=== PATIENT | male | born 1990 | race Caucasian/White ===

== ENCOUNTER 2019-02-20 12:50 | Emergency (ER) | payer SELFPAY ==
[2019-02-20] MEDS ORDERED: Benzocaine 20% Topical Spray UD MUCMEM ONE (13:07)
[2019-02-20] MEDS ORDERED: Lidocaine 2% Viscous Solution 15 ML Cup PO ONE (13:07)
--- NOTE | 2019-02-20 13:09 | EDM.PDOC ---
ED HPI GENERAL MEDICAL PROBLEM - General Chief Complaint: ENT Problem Stated Complaint: TOOTH PAIN Time Seen by Provider: 02/20/19 13:00 Source of Information: Reports: [facility] Records History Limitations: Reports: No Limitations - History of Present Illness INITIAL COMMENTS - FREE TEXT/NARRATIVE: HISTORY AND PHYSICAL: History of present illness: Patient is a 28-year-old male who presents to the ED today with concern of dental pain 2 days. Patient states he has multiple broken teeth and does not see a dentist and has not seen one for over 5-10 years. Patient states he's had tooth abscesses in the past but has never had them properly treated. Patient states he can't afford a dentist so he came to the ED today. Patient denies fever, chills, chest pain, shortness of breath, or cough. Denies headache, neck stiff ness, change in vision, syncope, or near syncope. Denies nausea, vomiting, abdominal pain, diarrhea, constipation, or dysuria. Has not noted any blood in urine or stool. Patient has been eating and drinking appropriately. Review of systems: As per history of present illness and below otherwise all systems reviewed and negative. Past medical history: As per history of present illness and as reviewed below otherwise noncontributory. Surgical history: As per history of present illness and as reviewed below otherwise noncontributory. Social history: See social history for further information Family history: As per history of present illness and as reviewed below otherwise noncontributory. Physical exam: General: Patient is alert, oriented, and in no acute distress. Patient sitting comfortably on exam table. HEENT: Atraumatic, normocephalic, pupils equal and reactive bilaterally, negative for conjunctival pallor or scleral icterus, mucous membranes moist, TMs normal bilaterally, throat clear, neck supple, nontender, trachea midline. No drooling or trismus noted. No meningeal signs. No hot potato voice noted. Generalized poor dentition. There are multiple teeth that are cracked and eroded at various levels throughout the mouth. Tooth 17/18 are especially eroded with surrounding erythema and edema. Lungs: Clear to auscultation, breath sounds equal bilaterally, chest nontender. Heart: S1S2, regular rate and rhythm without overt murmur Abdomen: Soft, nondistended, nontender. Negative for masses or hepatosplenomegaly. Negative for costovertebral tenderness. Pelvis: Stable nontender. Genitourinary: Deferred. Rectal: Deferred. Skin: Intact, warm, dry. No lesions or rashes noted. Extremities: Atraumatic, negative for cords or calf pain. Neurovascular unremarkable. Neuro: Awake, alert, oriented. Cranial nerves II through XII unremarkable. Cerebellum unremarkable. Motor and sensory unremarkable throughout. Exam nonfocal. Notes: Discussed the importance for follow-up with the dentist for definitive care and with a primary care provider.. Voices understanding and is agreeable to plan of care. Denies any further questions or concerns at this time. Diagnostics: None Therapeutics: Dental balls Prescription: Amoxicillin Impression: Tooth Abscess Global dental caries/decay Plan: 1. Please take medication as prescribed. 2. Tylenol as directed and as needed for pain management. 3. "Tooth Balls" have been given to you; apply along the gumline every 2-3 hours as needed. Do not swallow these; external use only. 4. Follow-up with a dentist for definitive care. Return to the ED as needed and as discussed. Definitive disposition and diagnosis as appropriate pending reevaluation and review of above. Tooth/Teeth Pain Score (Numeric/FACES): 9 - Related Data Allergies Allergy/AdvReac Type Severity Reaction Status Date / Time ibuprofen Allergy Anaphylactic Verified 02/20/19 13:00 Shock Home Meds: Home Meds . [No Known Home Meds] 02/20/19 [History] Past Medical History HEENT History: Reports: None Cardiovascular History: Reports: Other (See Below) Other Cardiovascular History: enlarged heart valves Respiratory History: Reports: None Gastrointestinal History: Reports: None Genitourinary History: Reports: None Musculoskeletal History: Reports: None Neurological History: Reports: None Psychiatric History: Reports: None Endocrine/Metabolic History: Reports: None Hematologic History: Reports: None Immunologic History: Reports: None Oncologic (Cancer) History: Reports: None Dermatologic History: Reports: None - Infectious Disease History Infectious Disease History: Reports: None - Past Surgical History Head Surgeries/Procedures: Reports: None Other GI Surgeries/Procedures: "organs have been rotated in surgery" Social & Family History - Family History Family Medical History: Noncontributory - Tobacco Use Smoking Status *Q: Current Every Day Smoker Years of Tobacco use: 15 Packs/Tins Daily: 1 - Caffeine Use Caffeine Use: Reports: Coffee - Recreational Drug Use Recreational Drug Use: Yes Recreational Drug Type: Reports: Marijuana/Hashish ED ROS ENT - Review of Systems Review Of Systems: ROS reveals no pertinent complaints other than HPI. ED EXAM, ENT - Physical Exam Exam: See Below (see dictation) Course - Vital Signs Last Recorded V/S: Last Vital Signs Temp 36.3 C 02/20/19 13:00 Pulse 80 02/20/19 13:00 Resp 16 02/20/19 13:00 BP 133/81 02/20/19 13:00 Pulse Ox 95 02/20/19 13:00 - Orders/Labs/Meds Orders: Active Orders 24 hr Category Date Time Status Communication Order [RC] STAT Care 02/20/19 13:28 Ordered Meds: Medications Discontinued Medications Generic Name Dose Route Start Last Admin Trade Name Freq PRN Reason Stop Dose Admin Benzocaine 2 each 02/20/19 13:07 02/20/19 13:13 Hurricaine One 20% MUCMEM 02/20/19 13:08 2 each ONETIME ONE Administration Lidocaine HCl 15 ml 02/20/19 13:07 02/20/19 13:13 Xylocaine 2% Viscous PO 02/20/19 13:08 15 ml ONETIME ONE Administration Departure - Departure Time of Disposition: 13:27 Disposition: Home, Self-Care 01 Clinical Impression: Dental erosion, generalized, Tooth abscess - Discharge Information Instructions: Dental Abscess, [id number], Preventive Dental Care, Adult Referrals: PCP,Unknown [Primary Care Provider] - Forms: ED Department Discharge Additional Instructions: The following information is given to patients seen in the emergency department who are being discharged to home. This information is to outline your options for follow-up care. We provide all patients seen in our emergency department with a follow-up referral. The need for follow-up, as well as the timing and circumstances, are variable depending upon the specifics of your emergency department visit. If you don't have a primary care physician on staff, we will provide you with a referral. We always advise you to contact your personal physician following an emergency department visit to inform them of the circumstance of the visit and for follow-up with them and/or the need for any referrals to a consulting specialist. The emergency department will also refer you to a specialist when appropriate. This referral assures that you have the opportunity for follow-up care with a specialist. All of these measure are taken in an effort to provide you with optimal care, which includes your follow-up. Under all circumstances we always encourage you to contact your private physician who remains a resource for coordinating your care. When calling for follow-up care, please make the office aware that this follow-up is from your recent emergency room visit. If for any reason you are refused follow-up, please contact the [facility] Emergency Department at and asked to speak to the emergency department charge nurse. [facility] [address] [place] [id number] [id number] 1. Please take medication as prescribed. 2. Tylenol as directed and as needed for pain management. 3. "Tooth Balls" have been given to you; apply along the gumline every 2-3 hours as needed. Do not swallow these; external use only. 4. Follow-up with a dentist for definitive care. Return to the ED as needed and as discussed. - My Orders Last 24 Hours: My Active Orders 02/20/19 13:28 Communication Order [RC] STAT - Assessment/Plan Last 24 Hours: My Active Orders 02/20/19 13:28 Communication Order [RC] STAT
== END 2019-02-20 13:45 | disposition home or self-care (01) ==
LOC: MW.ED 12:50
DX: K04.7 Periapical abscess without sinus (principal); F17.210 Nicotine dependence, cigarettes, uncomplicated; K03.2 Erosion of teeth; Z88.6 Allergy status to analgesic agent
CPT/HCPCS: 99282; A9270; 99283

== ENCOUNTER 2019-05-07 08:42 | Observation (INO) | payer SELFPAY ==
[2019-05-07] MEDS ORDERED: Sodium Chloride 0.9% 2.5 ML Syringe FLUSH PRN (08:45)
[2019-05-07] MEDS ORDERED: Sodium Chloride 0.9% 10 ML Syringe FLUSH PRN (08:45)
[2019-05-07] MEDS ORDERED: Sodium Chloride 0.9% 1,000 ML IV ONE ×2 (08:47→09:48)
[2019-05-07] MEDS ORDERED: Diltiazem 25 MG/5 ML SDV IVPUSH ONE (08:47)
--- NOTE | 2019-05-07 09:10 | EDM.PDOC ---
ED HPI GENERAL MEDICAL PROBLEM - General Chief Complaint: Chest Pain Stated Complaint: CHEST PAIN Time Seen by Provider: 05/07/19 09:05 - History of Present Illness INITIAL COMMENTS - FREE TEXT/NARRATIVE: 28 y/o male here with right chest pain. States that pain started this morning around 7:30 am. Went to work but still having the chest pain. His boss drove him to the ER. States pain is sharp with radiation to back. No arm weakness or numbness. NO syncopal episodes. No nausea, vomiting. Denies any illicit drug use. No trauma to chest. Smokes on daily basis. No cardiac history. Denies any dyslipidemia or hypertension. Not on any medications. No sick contacts. no diarrhea. In the ER, he was found to be in AFib with RVR in 130's. No ST elevation on EKG. Chest Pain Score (Numeric/FACES): 5 - Related Data Allergies Allergy/AdvReac Type Severity Reaction Status Date / Time ibuprofen Allergy Hives Verified 05/07/19 08:54 Home Meds: Home Meds . [No Known Home Meds] 02/20/19 [History] Past Medical History HEENT History: Reports: None Cardiovascular History: Reports: Other (See Below) Other Cardiovascular History: enlarged heart valves Respiratory History: Reports: None Gastrointestinal History: Reports: None Genitourinary History: Reports: None Musculoskeletal History: Reports: None Neurological History: Reports: None Psychiatric History: Reports: None Endocrine/Metabolic History: Reports: None Hematologic History: Reports: None Immunologic History: Reports: None Oncologic (Cancer) History: Reports: None Dermatologic History: Reports: None - Infectious Disease History Infectious Disease History: Reports: None - Past Surgical History Head Surgeries/Procedures: Reports: None Other GI Surgeries/Procedures: "organs have been rotated in surgery" Social & Family History - Family History Family Medical History: Noncontributory - Tobacco Use Smoking Status *Q: Current Every Day Smoker Years of Tobacco use: 15 Packs/Tins Daily: 0.5 - Caffeine Use Caffeine Use: Reports: Coffee - Recreational Drug Use Recreational Drug Use: No ED ROS GENERAL - Review of Systems Review Of Systems: ROS reveals no pertinent complaints other than HPI. ED EXAM, GENERAL - Physical Exam Exam: See Below General Appearance: Alert, WD/WN, Anxious Head: Atraumatic, Normocephalic Respiratory/Chest: Lungs Clear, Normal Breath Sounds, Other (tender right chest) Cardiovascular: Tachycardia, Irregularly Irregular GI/Abdominal: Normal Bowel Sounds, Soft, Non-Tender Extremities: Normal Inspection, No Pedal Edema Neurological: Alert, Oriented Skin Exam: Warm, Dry Course - Vital Signs Text/Narrative:: Trops negative. Rate controlled after diltiazem 20 mg IV once. Pain controlled after toradol 30 mg IV once. Case discussed with Dr. Delcid who accepted the patient. Last Recorded V/S: Last Vital Signs Temp 36.3 C 05/07/19 08:54 Pulse 86 05/07/19 09:37 Resp 18 05/07/19 09:37 BP 114/70 05/07/19 09:37 Pulse Ox 94 L 05/07/19 09:37 - Orders/Labs/Meds Orders: Active Orders 24 hr Category Date Time Status EKG 12 Lead [EKG Documentation Completion] [RC] STAT Care 05/07/19 08:48 Active EKG Documentation Completion [RC] STAT Care 05/07/19 09:45 Active DRUG SCREEN, URINE [URCHEM] Stat Lab 05/07/19 08:48 Ordered MAGNESIUM [CHEM] Stat Lab 05/07/19 09:55 Ordered Sodium Chloride 0.9% [Normal Saline] 1,000 ml Med 05/07/19 09:48 Active IV STAT Sodium Chloride 0.9% [Saline Flush] Med 05/07/19 08:45 Active 10 ml FLUSH ASDIRECTED PRN Sodium Chloride 0.9% [Saline Flush] Med 05/07/19 08:45 Active 2.5 ml FLUSH ASDIRECTED PRN Saline Lock Insert [OM.PC] Stat Oth 05/07/19 08:45 Ordered Medication Orders Sodium Chloride (Normal Saline) 1,000 mls @ 999 mls/hr IV STAT ONE Stop: 05/07/19 10:48 Last Admin: 05/07/19 09:52 Dose: 999 mls/hr Sodium Chloride (Saline Flush) 10 ml FLUSH ASDIRECTED PRN PRN Reason: Keep Vein Open Last Admin: 05/07/19 09:27 Dose: 10 ml Sodium Chloride (Saline Flush) 2.5 ml FLUSH ASDIRECTED PRN PRN Reason: Keep Vein Open Last Admin: 05/07/19 09:27 Dose: 2.5 ml Labs: Laboratory Tests 05/07/19 05/07/19 05/07/19 Range/Units 08:42 08:42 08:42 WBC 12.12 H (4.0-11.0) K/uL RBC 4.96 (4.50-5.90) M/uL Hgb 15.4 (13.0-17.0) g/dL Hct 45.5 (38.0-50.0) % MCV 91.7 (80.0-98.0) fL MCH 31.0 (27.0-32.0) pg MCHC 33.8 (31.0-37.0) g/dL RDW Std Deviation 43.0 (28.0-62.0) fl RDW Coeff of Dedrick 13 (11.0-15.0) % Plt Count 285 (150-400) K/uL MPV 9.80 (7.40-12.00) fL Neut % (Auto) 65.9 (48.0-80.0) % Lymph % (Auto) 25.7 (16.0-40.0) % [place] % (Auto) 7.8 (0.0-15.0) % Eos % (Auto) 0.5 (0.0-7.0) % Baso % (Auto) 0.1 (0.0-1.5) % Neut # (Auto) 8.0 H (1.4-5.7) K/uL Lymph # (Auto) 3.1 H (0.6-2.4) K/uL [place] # (Auto) 0.9 H (0.0-0.8) K/uL Eos # (Auto) 0.1 (0.0-0.7) K/uL Baso # (Auto) 0.0 (0.0-0.1) K/uL Nucleated RBC % 0.0 /100WBC Nucleated RBCs # 0 K/uL Sodium 140 (136-148) mmol/L Potassium 3.6 (3.5-5.1) mmol/L Chloride 102 (98-107) mmol/L Carbon Dioxide 24.0 (21.0-32.0) mmol/L BUN 15 (7.0-18.0) mg/dL Creatinine 0.8 (0.8-1.3) mg/dL Est Cr Clr Drug Dosing 117.46 mL/min Estimated GFR (MDRD) > 60.0 ml/min Glucose 106 (74-106) mg/dL Calcium 9.9 (8.5-10.1) mg/dL Total Bilirubin 5.4 H (0.2-1.0) mg/dL AST 16 (15-37) IU/L ALT 18 (14-63) IU/L Alkaline Phosphatase 75 (46-116) U/L Troponin I < 0.050 (0.000-0.056) ng/mL Total Protein 8.1 (6.4-8.2) g/dL Albumin 4.6 (3.4-5.0) g/dL Globulin 3.5 (2.6-4.0) g/dL Albumin/Globulin Ratio 1.3 (0.9-1.6) TSH 3rd Generation 0.78 (0.36-3.74) uIU/mL Ethyl Alcohol < 3.0 mg/dL Meds: Medications Generic Name Dose Route Start Last Admin Trade Name Freeagle PRN Reason Stop Dose Admin Sodium Chloride 1,000 mls @ 999 mls/hr 05/07/19 09:48 05/07/19 09:52 Normal Saline IV 05/07/19 10:48 999 mls/hr STAT ONE Administration Sodium Chloride 10 ml 05/07/19 08:45 05/07/19 09:27 Saline Flush FLUSH 10 ml ASDIRECTED PRN Administration Keep Vein Open Sodium Chloride 2.5 ml 05/07/19 08:45 05/07/19 09:27 Saline Flush FLUSH 2.5 ml ASDIRECTED PRN Administration Keep Vein Open Discontinued Medications Generic Name Dose Route Start Last Admin Trade Name Freeagle PRN Reason Stop Dose Admin Diltiazem HCl 20 mg 05/07/19 08:47 05/07/19 08:53 Diltiazem IVPUSH 05/07/19 08:48 20 mg ONETIME ONE Administration Sodium Chloride 1,000 mls @ 999 mls/hr 05/07/19 08:47 05/07/19 08:50 Normal Saline IV 05/07/19 09:47 999 mls/hr STAT ONE Administration Ketorolac Tromethamine 30 mg 05/07/19 09:17 05/07/19 09:26 Toradol IVPUSH 05/07/19 09:18 30 mg ONETIME ONE Administration Departure - Departure Time of Disposition: 10:24 Disposition: Refer to Observation Clinical Impression: Atrial fibrillation with RVR Referrals: PCP,None [Primary Care Provider] - Forms: ED Department Discharge - My Orders Last 24 Hours: My Active Orders 05/07/19 08:45 Sodium Chloride 0.9% [Saline Flush] 10 ml FLUSH ASDIRECTED PRN Sodium Chloride 0.9% [Saline Flush] 2.5 ml FLUSH ASDIRECTED PRN Saline Lock Insert [OM.PC] Stat 05/07/19 08:48 EKG 12 Lead [EKG Documentation Completion] [RC] STAT DRUG SCREEN, URINE [URCHEM] Stat 05/07/19 09:45 EKG Documentation Completion [RC] STAT 05/07/19 09:48 Sodium Chloride 0.9% [Normal Saline] 1,000 ml IV STAT 05/07/19 09:55 MAGNESIUM [CHEM] Stat - Assessment/Plan Last 24 Hours: My Active Orders 05/07/19 08:45 Sodium Chloride 0.9% [Saline Flush] 10 ml FLUSH ASDIRECTED PRN Sodium Chloride 0.9% [Saline Flush] 2.5 ml FLUSH ASDIRECTED PRN Saline Lock Insert [OM.PC] Stat 05/07/19 08:48 EKG 12 Lead [EKG Documentation Completion] [RC] STAT DRUG SCREEN, URINE [URCHEM] Stat 05/07/19 09:45 EKG Documentation Completion [RC] STAT 05/07/19 09:48 Sodium Chloride 0.9% [Normal Saline] 1,000 ml IV STAT 05/07/19 09:55 MAGNESIUM [CHEM] Stat
[2019-05-07] MEDS ORDERED: Ketorolac 30 MG/ML SDV IVPUSH ONE (09:17)
--- NOTE | 2019-05-07 09:20 | CR ---
EXAMINATION: Portable chest radiograph. HISTORY: Shortness of breath. FINDINGS: The trachea is midline. The cardiomediastinal silhouette is within normal limits. No pulmonary infiltrates, effusions or pneumothorax. Osseous structures appear unremarkable. IMPRESSION: No acute cardiopulmonary process.
[2019-05-07 09:34] LABS: CHLORIDE,CL 102 mmol/L (98-107); SODIUM,NA 140 mmol/L (136-148)
[2019-05-07] MEDS ORDERED: Magnesium Sulfate/Water 2 GM in Premix Bag 1 BAG IV ONE (13:52)
[2019-05-07] MEDS ORDERED: Potassium Chloride 20 MEQ Tab.ER PO ONE (13:52)
--- NOTE | 2019-05-07 14:14 | PCM.HP ---
H&P History of Present Illness - General Date of Service: 05/07/19 Admit Problem/Dx: Admission Diagnosis/Problem Admission Diagnosis/Problem Afib, Atrial fibrillation - History of Present Illness Initial Comments - Free Text/Narative: 28 yo male who presents with 2 hour history of chest pain. The pain was sharp, right sided and radiated to the right scapula. He denied any shortness of breath, fevers, abdominal pain, or cough. IN the ED he was noted to have a heart rate of 120s. He was given IV diltiazem and 2 liters of normal saline with normalization of his heart rate. EKG showed likely atrial rhythm. Chest Pain Score (Numeric/FACES): 5 - Related Data Allergies/Adverse Reactions: Allergies Allergy/AdvReac Type Severity Reaction Status Date / Time ibuprofen Allergy Hives Verified 05/07/19 11:31 Home Medications: Home Meds . [No Known Home Meds] 02/20/19 [History] Past Medical History HEENT History: Reports: None Cardiovascular History: Reports: Other (See Below) Other Cardiovascular History: enlarged heart valves Respiratory History: Reports: Asthma Gastrointestinal History: Reports: None Genitourinary History: Reports: None Musculoskeletal History: Reports: None Neurological History: Reports: None Psychiatric History: Reports: None Endocrine/Metabolic History: Reports: None Hematologic History: Reports: None Immunologic History: Reports: None Oncologic (Cancer) History: Reports: None, Other (See Below) Other Oncologic History: "Stated he had black spots forming on lungs and he said it cleared up with medical marijauna" Dermatologic History: Reports: None - Infectious Disease History Infectious Disease History: Reports: None - Past Surgical History Head Surgeries/Procedures: Reports: None Other GI Surgeries/Procedures: "organs have been rotated in surgery" Social & Family History - Family History Family Medical History: Noncontributory - Tobacco Use Smoking Status *Q: Current Every Day Smoker Years of Tobacco use: 9 Packs/Tins Daily: 0.5 Used Tobacco, but Quit: No Second Hand Smoke Exposure: Yes - Caffeine Use Caffeine Use: Reports: Coffee, Soda Caffeine Use Comment: Drinks a pot of coffe a day, one can of pop a day - Recreational Drug Use Recreational Drug Use: Yes Drug Use in Last 12 Months: Yes Recreational Drug Type: Reports: Marijuana/Hashish Recreational Drug Use Frequency: Daily Recreational Drug Last Use: 05/06/19 H&P Review of Systems - Review of Systems: Review Of Systems: ROS reveals no pertinent complaints other than HPI. Exam - Exam Exam: See Below - Vital Signs Vital Signs: Last Vital Signs Temp 37.1 C 05/07/19 12:00 Pulse 60 05/07/19 12:00 Resp 18 05/07/19 12:00 BP 113/77 05/07/19 12:00 Pulse Ox 97 05/07/19 12:00 Weight: 83.416 kg - Exam General: Alert, Oriented HEENT: Mucosa Moist & [place] Neck: Supple Lungs: Clear to Auscultation, Normal Respiratory Effort Cardiovascular: Regular Rate, Regular Rhythm GI/Abdominal Exam: Soft, Non-Tender Extremities: Non-Tender, No Pedal Edema Skin: Warm, Dry, Intact Neurological: Cranial Nerves Intact - Patient Data Lab Results Last 24 hrs: Laboratory Results - last 24 hr 05/07/19 05/07/19 05/07/19 Range/Units 08:42 08:42 08:42 WBC 12.12 H (4.0-11.0) K/uL RBC 4.96 (4.50-5.90) M/uL Hgb 15.4 (13.0-17.0) g/dL Hct 45.5 (38.0-50.0) % MCV 91.7 (80.0-98.0) fL MCH 31.0 (27.0-32.0) pg MCHC 33.8 (31.0-37.0) g/dL RDW Std Deviation 43.0 (28.0-62.0) fl RDW Coeff of Dedrick 13 (11.0-15.0) % Plt Count 285 (150-400) K/uL MPV 9.80 (7.40-12.00) fL Neut % (Auto) 65.9 (48.0-80.0) % Lymph % (Auto) 25.7 (16.0-40.0) % Mathews % (Auto) 7.8 (0.0-15.0) % Eos % (Auto) 0.5 (0.0-7.0) % Baso % (Auto) 0.1 (0.0-1.5) % Neut # (Auto) 8.0 H (1.4-5.7) K/uL Lymph # (Auto) 3.1 H (0.6-2.4) K/uL Mathews # (Auto) 0.9 H (0.0-0.8) K/uL Eos # (Auto) 0.1 (0.0-0.7) K/uL Baso # (Auto) 0.0 (0.0-0.1) K/uL Nucleated RBC % 0.0 /100WBC Nucleated RBCs # 0 K/uL Sodium 140 (136-148) mmol/L Potassium 3.6 (3.5-5.1) mmol/L Chloride 102 (98-107) mmol/L Carbon Dioxide 24.0 (21.0-32.0) mmol/L BUN 15 (7.0-18.0) mg/dL Creatinine 0.8 (0.8-1.3) mg/dL Est Cr Clr Drug Dosing 117.46 mL/min Estimated GFR (MDRD) > 60.0 ml/min Glucose 106 (74-106) mg/dL Calcium 9.9 (8.5-10.1) mg/dL Magnesium (1.8-2.4) mg/dL Total Bilirubin 5.4 H (0.2-1.0) mg/dL AST 16 (15-37) IU/L ALT 18 (14-63) IU/L Alkaline Phosphatase 75 (46-116) U/L Troponin I < 0.050 (0.000-0.056) ng/mL Total Protein 8.1 (6.4-8.2) g/dL Albumin 4.6 (3.4-5.0) g/dL Globulin 3.5 (2.6-4.0) g/dL Albumin/Globulin Ratio 1.3 (0.9-1.6) TSH 3rd Generation 0.78 (0.36-3.74) uIU/mL Urine Opiates Screen (NEGATIVE) Ur Oxycodone Screen (NEGATIVE) Urine Methadone Screen (NEGATIVE) Ur Barbiturates Screen (NEGATIVE) Ur Phencyclidine Scrn (NEGATIVE) Ur Amphetamine Screen (NEGATIVE) U Methamphetamines Scrn (NEGATIVE) U Benzodiazepines Scrn (NEGATIVE) U Cocaine Metab Screen (NEGATIVE) U Marijuana (THC) Screen (NEGATIVE) Ethyl Alcohol < 3.0 mg/dL 05/07/19 05/07/19 Range/Units 08:42 10:31 WBC (4.0-11.0) K/uL RBC (4.50-5.90) M/uL Hgb (13.0-17.0) g/dL Hct (38.0-50.0) % MCV (80.0-98.0) fL MCH (27.0-32.0) pg MCHC (31.0-37.0) g/dL RDW Std Deviation (28.0-62.0) fl RDW Coeff of Dedrick (11.0-15.0) % Plt Count (150-400) K/uL MPV (7.40-12.00) fL Neut % (Auto) (48.0-80.0) % Lymph % (Auto) (16.0-40.0) % Mathews % (Auto) (0.0-15.0) % Eos % (Auto) (0.0-7.0) % Baso % (Auto) (0.0-1.5) % Neut # (Auto) (1.4-5.7) K/uL Lymph # (Auto) (0.6-2.4) K/uL Mathews # (Auto) (0.0-0.8) K/uL Eos # (Auto) (0.0-0.7) K/uL Baso # (Auto) (0.0-0.1) K/uL Nucleated RBC % /100WBC Nucleated RBCs # K/uL Sodium (136-148) mmol/L Potassium (3.5-5.1) mmol/L Chloride (98-107) mmol/L Carbon Dioxide (21.0-32.0) mmol/L BUN (7.0-18.0) mg/dL Creatinine (0.8-1.3) mg/dL Est Cr Clr Drug Dosing mL/min Estimated GFR (MDRD) ml/min Glucose (74-106) mg/dL Calcium (8.5-10.1) mg/dL Magnesium 1.7 L (1.8-2.4) mg/dL Total Bilirubin (0.2-1.0) mg/dL AST (15-37) IU/L ALT (14-63) IU/L Alkaline Phosphatase (46-116) U/L Troponin I (0.000-0.056) ng/mL Total Protein (6.4-8.2) g/dL Albumin (3.4-5.0) g/dL Globulin (2.6-4.0) g/dL Albumin/Globulin Ratio (0.9-1.6) TSH 3rd Generation (0.36-3.74) uIU/mL Urine Opiates Screen NEGATIVE (NEGATIVE) Ur Oxycodone Screen NEGATIVE (NEGATIVE) Urine Methadone Screen NEGATIVE (NEGATIVE) Ur Barbiturates Screen NEGATIVE (NEGATIVE) Ur Phencyclidine Scrn NEGATIVE (NEGATIVE) Ur Amphetamine Screen POSITIVE (NEGATIVE) U Methamphetamines Scrn POSITIVE (NEGATIVE) U Benzodiazepines Scrn NEGATIVE (NEGATIVE) U Cocaine Metab Screen NEGATIVE (NEGATIVE) U Marijuana (THC) Screen POSITIVE (NEGATIVE) Ethyl Alcohol mg/dL Result Diagrams: 05/07/19 08:42 05/07/19 08:42 Problem List Initiated/Reviewed/Updated: Yes Orders Last 24hrs: Active Orders 24 hr Category Date Time Status Admission Status [Patient Status] [ADT] Stat ADT 05/07/19 10:37 Active Antiembolic Devices [RC] PER UNIT ROUTINE Care 05/07/19 14:08 Ordered Cardiac Monitoring [RC] Q8H Care 05/07/19 10:37 Active Oxygen Therapy [RC] PRN Care 05/07/19 14:08 Ordered Up ad Mary [RC] ASDIRECTED Care 05/07/19 14:08 Ordered VTE/DVT Education [RC] PER UNIT ROUTINE Care 05/07/19 14:08 Ordered Vital Signs [RC] Q4H Care 05/07/19 14:08 Ordered Regular Diet [DIET] Diet 05/07/19 Breakfast Ordered Abdomen Ltd [US] Stat Exams 05/07/19 13:52 Ordered AMYLASE [CHEM] Routine Lab 05/07/19 13:53 Ordered CBC WITH AUTO DIFF [HEME] AM Lab 05/08/19 05:11 Ordered COMPREHENSIVE METABOLIC PN,CMP [CHEM] AM Lab 05/08/19 05:11 Ordered D-DIMER QUANTITATIVE [COAG] Routine Lab 05/07/19 14:07 Ordered LIPASE [CHEM] Routine Lab 05/07/19 13:53 Ordered Magnesium Sulfate/Water [Magnesium Sulfate in Water Med 05/07/19 13:52 Ordered Premix] 2 gm Premix Bag 1 bag IV ONETIME Sodium Chloride 0.9% [Saline Flush] Med 05/07/19 08:45 Active 10 ml FLUSH ASDIRECTED PRN Sodium Chloride 0.9% [Saline Flush] Med 05/07/19 08:45 Active 2.5 ml FLUSH ASDIRECTED PRN Saline Lock Insert [OM.PC] Stat Oth 05/07/19 08:45 Ordered Sequential Compression Device [OM.PC] Per Unit Routine Oth 05/07/19 14:08 Ordered Resuscitation Status Routine Resus Stat 05/07/19 14:08 Ordered Medication Orders Magnesium Sulfate 2 gm/ Premix 50 mls @ 50 mls/hr IV ONETIME ONE Stop: 05/07/19 14:51 Sodium Chloride (Saline Flush) 10 ml FLUSH ASDIRECTED PRN PRN Reason: Keep Vein Open Last Admin: 05/07/19 09:27 Dose: 10 ml Sodium Chloride (Saline Flush) 2.5 ml FLUSH ASDIRECTED PRN PRN Reason: Keep Vein Open Last Admin: 05/07/19 09:27 Dose: 2.5 ml Assessment/Plan Comment:: 28 yo male who presented with chest pain and tachycardia. His chest pain and tachycardia has resolved. Urine drug screen is positive meth. Abdominal ultrasound for work up of elevated bilirubin showed normal gallbladder and biliary system. Repeat troponin was negative. Patient is requesting discharge home. He was discharged home to have follow up with his PCP.
--- NOTE | 2019-05-07 17:19 | US ---
INDICATION: Elevated bilirubin. COMPARISON: None available. TECHNIQUE: Ultrasound examination of the abdomen was performed. FINDINGS: Note is made of situs inversus, with the liver located in the left abdomen. The gallbladder is located in the left abdomen. There is otherwise normal appearance of the gallbladder, with no sign of cholelithiasis or acute cholecystitis. There is no sign of gallbladder wall thickening or pericholecystic fluid. The common bile duct is normal in caliber at 3 mm. The pancreatic head and body were examined, and these are normal in appearance. The abdominal aorta and visualized portions of the inferior vena cava are normal in appearance. The liver shows no sign of mass or contour abnormality, and there is no sign of ascites. The kidneys are unremarkable. The spleen is located in the right abdomen and is normal in appearance. 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 Normal appearance of the gallbladder and biliary system aside from the situs inversus. No other abnormality seen in the abdomen. Dictated by Mamadou Silverio MD @ May 07 2019 5:14PM Signed by Dr. Mamadou Silverio @ May 07 2019 5:18PM
== END 2019-05-07 19:30 | disposition home or self-care (01) ==
LOC: MW.ED 08:42 → MW.MS 10:37
PROVIDERS: ADMIT Internal Medicine; ATTEND Internal Medicine
DX: R07.9 Chest pain, unspecified (principal); I48.91 Unspecified atrial fibrillation; R82.5 Elevated urine levels of drugs, medicaments and biological substances; J45.909 Unspecified asthma, uncomplicated; F17.200 Nicotine dependence, unspecified, uncomplicated; Z88.6 Allergy status to analgesic agent
CPT/HCPCS: 36415; 71045; 76700; 80053; 80305; 81001; 82150; 83690; 83735; 84443; 84484; 85025; 85379; 93005; 96361; 96365; 96375; 99285; A4217; A9270; G0378; G0480; J1885; J3475; J3490; J7040; 96374

== ENCOUNTER 2019-07-13 12:14 | Emergency (ER) | payer SELFPAY ==
--- NOTE | 2019-07-13 12:23 | EDM.PDOC ---
ED HPI GENERAL MEDICAL PROBLEM - General Chief Complaint: Laceration Stated Complaint: LECERATION L THUMB Time Seen by Provider: 07/13/19 12:20 - History of Present Illness INITIAL COMMENTS - FREE TEXT/NARRATIVE: HISTORY AND PHYSICAL: History of present illness: Patient is 28-year-old white male presents concern of lacerations left hand this occurred with a utility knife slipped. He denies other trauma concern he denies up-to-date tetanus Review of systems: As per history of present illness and below otherwise all systems reviewed and negative. Past medical history: As per history of present illness and as reviewed below otherwise noncontributory. Surgical history: As per history of present illness and as reviewed below otherwise noncontributory. Social history: No reported history of drug or alcohol abuse. Family history: As per history of present illness and as reviewed below otherwise noncontributory. Physical exam: HEENT: Atraumatic, normocephalic, pupils reactive, negative for conjunctival pallor or scleral icterus, mucous membranes moist, throat clear, neck supple, nontender, trachea midline. Lungs: Clear to auscultation, breath sounds equal bilaterally, chest nontender. Heart: S1S2, regular, negative for clicks, rubs, or JVD. Abdomen: Soft, nondistended, nontender. Negative for masses or hepatosplenomegaly. Negative for costovertebral tenderness. Pelvis: Stable nontender. Genitourinary: Deferred. Rectal: Deferred. Extremities: Patient has approximately half centimeter moderate depth laceration over the dorsal aspect of the base of his first digit there is no tendon involvement CMS neurovascular exam is unremarkable was good hemostasis Neuro: Awake, alert, oriented. Cranial nerves II through XII unremarkable. Cerebellum unremarkable. Motor and sensory unremarkable throughout. Exam nonfocal. Diagnostics: None Therapeutics: #1 patient was anesthetized 1% lidocaine without epinephrine prepped and draped in a sterile manner and was closed with 4-0 nylon suture dressing was applied tetanus was updated Impression: #1 hand injury (laceration) Definitive disposition and diagnosis as appropriate pending reevaluation and review of above. - Related Data Allergies Allergy/AdvReac Type Severity Reaction Status Date / Time ibuprofen Allergy Hives Verified 05/07/19 11:31 Home Meds: Home Meds . [No Known Home Meds] 02/20/19 [History] Past Medical History HEENT History: Reports: None Cardiovascular History: Reports: Other (See Below) Other Cardiovascular History: enlarged heart valves Respiratory History: Reports: Asthma Gastrointestinal History: Reports: None Genitourinary History: Reports: None Musculoskeletal History: Reports: None Neurological History: Reports: None Psychiatric History: Reports: None Endocrine/Metabolic History: Reports: None Hematologic History: Reports: None Immunologic History: Reports: None Oncologic (Cancer) History: Reports: None, Other (See Below) Other Oncologic History: "Stated he had black spots forming on lungs and he said it cleared up with medical mar[place]" Dermatologic History: Reports: None - Infectious Disease History Infectious Disease History: Reports: None - Past Surgical History Head Surgeries/Procedures: Reports: None Other GI Surgeries/Procedures: "organs have been rotated in surgery" Social & Family History - Family History Family Medical History: Noncontributory - Caffeine Use Caffeine Use: Reports: Coffee, Soda Caffeine Use Comment: Drinks a pot of coffe a day, one can of pop a day ED ROS GENERAL - Review of Systems Review Of Systems: ROS reveals no pertinent complaints other than HPI. ED EXAM, SKIN/RASH Exam: See Below (dictation) Departure - Departure Time of Disposition: 12:23 Disposition: Home, Self-Care 01 Condition: Good Clinical Impression: Hand injury - Discharge Information Referrals: PCP,None [Primary Care Provider] - Additional Instructions: The following information is given to patients seen in the emergency department who are being discharged to home. This information is to outline your options for follow-up care. We provide all patients seen in our emergency department with a follow-up referral. The need for follow-up, as well as the timing and circumstances, are variable depending upon the specifics of your emergency department visit. If you don't have a primary care physician on staff, we will provide you with a referral. We always advise you to contact your personal physician following an emergency department visit to inform them of the circumstance of the visit and for follow-up with them and/or the need for any referrals to a consulting specialist. The emergency department will also refer you to a specialist when appropriate. This referral assures that you have the opportunity for followup care with a specialist. All of these measure are taken in an effort to provide you with optimal care, which includes your followup. Under all circumstances we always encourage you to contact your private physician who remains a resource for coordinating your care. When calling for followup care, please make the office aware that this follow-up is from your recent emergency room visit. If for any reason you are refused follow-up, please contact the [facility] emergency department at and asked to speak to the emergency department charge nurse. Wound care as discussed wound check 48 hour suture removal 10-14 days return as needed as discussed
[2019-07-13] MEDS ORDERED: Diphtheria,Pertussis(Acell),Tetanus Vaccine 0.5 ML Syringe IM ONE (12:43)
== END 2019-07-13 13:06 | disposition home or self-care (01) ==
LOC: MW.ED 12:14
DX: S61.012A Laceration without foreign body of left thumb without damage to nail, initial encounter (principal); Z88.6 Allergy status to analgesic agent; Z23 Encounter for immunization; W26.0XXA Contact with knife, initial encounter
CPT/HCPCS: 12001; 90471; 90715; 99282; J2001

== ENCOUNTER 2019-09-13 09:42 | Emergency (ER) | payer SELFPAY ==
[2019-09-13] MEDS ORDERED: Sodium Chloride 0.9% 1,000 ML IV SCH (10:00)
[2019-09-13 11:00] LABS: BLOOD UREA NITROGEN,BUN 9 mg/dL (7.0-18.0); CARBON DIOXIDE,CO2 27.6 mmol/L (21.0-32.0); CHLORIDE,CL 105 mmol/L (98-107); GLUCOSE RANDOM 84 mg/dL (74-106); SODIUM,NA 142 mmol/L (136-148)
[2019-09-13] MEDS ORDERED: fentaNYL 100 MCG/2 ML SDV IVPUSH ONE (11:04)
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
--- NOTE | 2019-09-13 12:03 | CT ---
INDICATION: Left lower quadrant pain that started this morning after urinating. Blood in urine. History of situs inversus. TECHNIQUE: CT of abdomen and pelvis performed without IV contrast Findings : The liver is on the left primarily on the left and the spleen is on the right consistent with sinus inversus. Linear atelectasis in the lingula. Mild linear atelectasis or scarring in the right middle lobe. Patchy ground-glass and solid tiny nodules or nodular interstitial opacities in the right middle lobe should be related to an acute or active infectious or inflammatory etiology such as mild bronchiolitis or possibly a patchy early pneumonitis. Atypical granulomatous process or aspiration could cause this. Tiny cortical calcification in the right lower kidney. No ureteral stones. No specific CT abnormality is identified explain flank pain. Very small amount of free fluid in the pelvis posteriorly is abnormal in a male patient. Etiology of this is uncertain. In the absence of other findings this could be related to an enteritis. The colon is entirely located in the right abdomen. The SMV as to the left of the SMA. 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 The stomach is to the right consistent abdominal situs inversus. Remainder negative. IMPRESSION: 1. No ureteral stone to explain left flank pain. No specific abnormality to explain left flank pain. 2. Findings consistent with abdominal situs inversus as described above. 3. 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 4. Trace amount of free fluid in the pelvis posteriorly is abnormal in a young patient and of uncertain etiology. This can be seen in an enteritis in the absence of other findings but is not specific. 5. Patchy small nodular opacities and nodular interstitial infiltrates in the right middle lobe are mild but consistent with an active infectious or inflammatory process such as a bronchiolitis or possibly an early pneumonitis. Other findings as above. Please note that all CT scans at this facility use dose modulation, iterative reconstruction, and/or weight-based dosing when appropriate to reduce radiation dose to as low as reasonably achievable. Dictated by Bill Moran MD @ Sep 13 2019 11:57AM Signed by Dr. Bill Moran @ Sep 13 2019 12:01PM
--- NOTE | 2019-09-13 12:05 | CR ---
INDICATION: Cough. TECHNIQUE: PA and lateral chest x-ray. COMPARISON: 05/07/2019. FINDINGS: The mild nodular opacities and infiltrate in the right middle lobe on today`s CT are not appreciable on this x-ray. Please see today`s CT report. No focal dense infiltrate or consolidation in either lung. Mild moderate soft tissue prominence both hilar regions is fairly stable and could be related to prominence of the central pulmonary arteries or less likely related to some mild stable lymph node prominence. Chest otherwise negative without acute disease. Dictated by Bill Moran MD @ Sep 13 2019 12:01PM Signed by Dr. Bill Moran @ Sep 13 2019 12:03PM
== END 2019-09-13 13:07 | disposition home or self-care (01) ==
LOC: MW.ED 09:42
DX: R10.32 Left lower quadrant pain (principal); F17.210 Nicotine dependence, cigarettes, uncomplicated; Z88.6 Allergy status to analgesic agent
CPT/HCPCS: 71046; 74176; 80053; 80305; 81003; 83690; 84484; 85025; 99284; J3010; J7040; 93005

== ENCOUNTER 2019-11-05 09:28 | Emergency (ER) | payer SELFPAY ==
[2019-11-05] MEDS ORDERED: Sodium Chloride 0.9% 1,000 ML IV ONE (09:54)
[2019-11-05] MEDS ORDERED: Acetaminophen 325 MG Tab PO ONE (09:54)
[2019-11-05] MEDS ORDERED: Ondansetron 4 MG/2 ML SDV IVPUSH ONE (09:54)
--- NOTE | 2019-11-05 10:02 | EDM.PDOC ---
ED [facility] GENERAL MEDICAL PROBLEM - General Chief Complaint: General Stated Complaint: FLU SYMPTOMS Time Seen by Provider: 11/05/19 10:00 Source of Information: Reports: Patient History Limitations: Reports: No Limitations - History of Present Illness INITIAL COMMENTS - FREE TEXT/NARRATIVE: Patient is a 29-year-old male with no significant past medical history presenting with chief complaint of flulike symptoms. Patient states he has had the symptoms for approximately 3 days now. Patient reports arthralgias along with sore throat, vomiting, diarrhea. Patient states he has been intermittently feverish and has been taking Tylenol to help with headache. Tylenol helps slightly with headache. Patient denies any difficulty breathing, abdominal pain, shortness of breath. Patient has no rashes and no recent travels. Patient reports admission for the flu several years ago due to severe dehydration. In addition to that documented in the HPI above, the additional ROS was obtained : Constitutional: Positive for fevers Eyes: Denies vision changes ENMT: Per HPI CV: Denies chest pain Resp: Denies SOB GI: Per HPI : Denies painful urination MSK: Denies recent trauma Skin: Denies new rashes Neuro: Denies new numbness or tingling or weakness Endocrine: Denies unexpected weight loss Heme: Denies bleeding disorders I have reviewed the triage vital signs Const: Well nourished, well developed, appears stated age Eyes: PERRL, no conjunctival injection HENT: NCAT, Neck supple without meningismus CV: RRR, Warm, well-perfused extremities RESP: CTAB, Unlabored respiratory effort GI: soft, non-tender, non-distended, no masses MSK: No gross deformities appreciated Skin: Warm, dry. No rashes Neuro: Alert, insulation power unit tender II-XII grossly intact. Sensation and motor function of extremities grossly intact. Psych: Appropriate mood and affect Assessment and plan Patient is a 29-year-old male with influenza. Patient is well-appearing and not any acute distress. Patient received Zofran IV fluids for dehydration. Patient is now active vomiting and tolerating p.o. Patient will be discharged with Zofran and Tylenol. Patient given instructions for return precautions. Patient instructed to stay hydrated and rest for the next several days. Given strict return precautions. All questions addressed and answered. Patient agrees with plan Body Aches Pain Score (Numeric/FACES): 7 - Related Data Allergies Allergy/AdvReac Type Severity Reaction Status Date / Time ibuprofen Allergy Hives Verified 11/05/19 09:40 Home Meds: Home Meds . [No Known Home Meds] 11/05/19 [History] Past Medical History HEENT History: Reports: None Cardiovascular History: Reports: Afib, Other (See Below) Other Cardiovascular History: enlarged heart valves. "sinus inversus" Respiratory History: Reports: Asthma Gastrointestinal History: Reports: None Genitourinary History: Reports: None Musculoskeletal History: Reports: None Neurological History: Reports: None Psychiatric History: Reports: None Endocrine/Metabolic History: Reports: None Hematologic History: Reports: None Immunologic History: Reports: None Oncologic (Cancer) History: Reports: None, Other (See Below) Other Oncologic History: "Stated he had black spots forming on lungs and he said it cleared up with medical marijauna" Dermatologic History: Reports: None - Infectious Disease History Infectious Disease History: Reports: None - Past Surgical History Head Surgeries/Procedures: Reports: None Other GI Surgeries/Procedures: "organs have been rotated in surgery" Social & Family History - Family History Family Medical History: Noncontributory - Tobacco Use Smoking Status *Q: Current Every Day Smoker Years of Tobacco use: 10 Packs/Tins Daily: 1 - Caffeine Use Caffeine Use: Reports: Coffee Caffeine Use Comment: Drinks a pot of coffe a day, one can of pop a day - Recreational Drug Use Recreational Drug Use: No ED ROS GENERAL - Review of Systems Review Of Systems: See Below ED EXAM, GENERAL - Physical Exam Exam: See Below Course - Vital Signs Last Recorded V/S: Last Vital Signs Temp 36.7 C 11/05/19 10:21 Pulse 74 11/05/19 10:21 Resp 14 11/05/19 10:21 BP 100/64 11/05/19 10:21 Pulse Ox 95 11/05/19 10:21 - Orders/Labs/Meds Orders: Active Orders 24 hr Category Date Time Status CULTURE STREP A CONFIRMATION [] Stat Lab 11/05/19 09:38 Results STREP SCRN A RAPID W CULT CONF [] Stat Lab 11/05/19 09:38 Results Meds: Medications Discontinued Medications Generic Name Dose Route Start Last Admin Trade Name Freq PRN Reason Stop Dose Admin Acetaminophen 650 mg 11/05/19 09:54 01/16/20 10:15 Tylenol PO 11/05/19 09:55 650 mg NOW ONE Administration Sodium Chloride 1,000 mls @ 999 mls/hr 11/05/19 09:54 11/05/19 10:13 Normal Saline IV 11/05/19 10:54 999 mls/hr .BOLUS ONE Administration Ondansetron HCl 4 mg 11/05/19 09:54 11/05/19 10:16 Zofran IVPUSH 11/05/19 09:55 4 mg ONETIME ONE Administration Departure - Departure Time of Disposition: 11:17 Disposition: Home, Self-Care 01 Clinical Impression: Influenza - Discharge Information Referrals: PCP,None [Primary Care Provider] - Forms: ED Department Discharge Additional Instructions: The following information is given to patients seen in the emergency department who are being discharged to home. This information is to outline your options for follow-up care. We provide all patients seen in our emergency department with a follow-up referral. The need for follow-up, as well as the timing and circumstances, are variable depending upon the specifics of your emergency department visit. If you don't have a primary care physician on staff, we will provide you with a referral. We always advise you to contact your personal physician following an emergency department visit to inform them of the circumstance of the visit and for follow-up with them and/or the need for any referrals to a consulting specialist. The emergency department will also refer you to a specialist when appropriate. This referral assures that you have the opportunity for follow-up care with a specialist. All of these measure are taken in an effort to provide you with optimal care, which includes your follow-up. Under all circumstances we always encourage you to contact your private physician who remains a resource for coordinating your care. When calling for follow-up care, please make the office aware that this follow-up is from your recent emergency room visit. If for any reason you are refused follow-up, please contact the [facility] Emergency Department at and asked to speak to the emergency department charge nurse. Sepsis Event Note - Evaluation Sepsis Screening Result: No Definite Risk - Focused Exam Vital Signs: Vital Signs Temp Pulse Resp BP Pulse Ox 11/05/19 10:21 36.7 C 74 14 100/64 95 11/05/19 09:40 37.3 C 86 18 95/62 95 Date Exam was Performed: 11/05/19 Time Exam was Performed: 11:16 - My Orders Last 24 Hours: My Active Orders 11/05/19 09:38 CULTURE STREP A CONFIRMATION [RM] Stat STREP SCRN A RAPID W CULT CONF [] Stat - Assessment/Plan Last 24 Hours: My Active Orders 11/05/19 09:38 CULTURE STREP A CONFIRMATION [] Stat STREP SCRN A RAPID W CULT CONF [] Stat
== END 2019-11-05 11:33 | disposition home or self-care (01) ==
LOC: MW.ED 09:28
DX: J11.1 Influenza due to unidentified influenza virus with other respiratory manifestations (principal); F17.210 Nicotine dependence, cigarettes, uncomplicated; I48.91 Unspecified atrial fibrillation; J45.909 Unspecified asthma, uncomplicated
CPT/HCPCS: 87081; 87880; 96361; 96374; 99284; A9270; J2405; J7030; 99283

== ENCOUNTER 2019-11-08 06:40 | Emergency (ER) | payer SELFPAY ==
[2019-11-08] MEDS ORDERED: Sodium Chloride 0.9% 1,000 ML IV ONE ×2 (07:12→08:47)
[2019-11-08] MEDS ORDERED: Acetaminophen 325 MG Tab PO ONE (07:12)
[2019-11-08] MEDS ORDERED: Ondansetron 4 MG/2 ML SDV IVPUSH ONE (07:12)
[2019-11-08] MEDS ORDERED: Albuterol 0.083% 2.5 MG/3 ML Neb Soln NEB ONE (07:13)
[2019-11-08 07:52] LABS: BLOOD UREA NITROGEN,BUN 6 mg/dL (7.0-18.0); CHLORIDE,CL 100 mmol/L (98-107); GLUCOSE RANDOM 96 mg/dL (74-106); POTASSIUM,K 3.6 mmol/L (3.5-5.1); SODIUM,NA 138 mmol/L (136-148)
--- NOTE | 2019-11-08 08:09 | EDM.PDOC ---
ED [facility] GENERAL MEDICAL PROBLEM - General Chief Complaint: Fever Stated Complaint: FLU Time Seen by Provider: 11/08/19 07:35 Source of Information: Reports: Patient History Limitations: Reports: No Limitations - History of Present Illness INITIAL COMMENTS - FREE TEXT/NARRATIVE: Patient is a 29-year-old male with past medical history of sinus inversus as well as atrial fibrillation presenting with a chief complaint of worsening of his viral symptoms. Patient reports continued fevers, chills, nausea, vomiting , sore throat, cough. He states his whole body is sore and painful. He reports significant decrease in appetite. He reports some mild associated shortness of breath but cough is nonproductive. Patient denies any chest pain. Patient reports using Zofran as well as Tylenol with minimal help. In addition to that documented in the HPI above, the additional ROS was obtained : Constitutional: Intermittent fevers Eyes: Denies vision changes ENMT: Acid of sore throat CV: Denies chest pain Resp: Mild SOB GI: Reports nausea : Denies painful urination MSK: Denies recent trauma Skin: Denies new rashes Neuro: Denies new numbness or tingling or weakness Endocrine: Denies unexpected weight loss Heme: Denies bleeding disorders I have reviewed the triage vital signs Const: Well nourished, well developed, appears stated age. Nontoxic in appearance, Eyes: PERRL, no conjunctival injection HENT: NCAT, Neck supple without meningismus CV: RRR, Warm, well-perfused extremities RESP: Bilateral wheezes on lung exam. No respiratory distress. Speaking full sentences. GI: soft, non-tender, non-distended, no masses MSK: No gross deformities appreciated Skin: Warm, dry. No rashes Neuro: Alert, core mounter II-XII grossly intact. Sensation and motor function of extremities grossly intact. Psych: Appropriate mood and affect Assessment and plan Patient is a 29-year-old male with a complaint of worsening of his influenza symptoms. Patient's labs are within normal limits. Patient had early infiltrate in the right lower lobe of the chest x-ray concerning for pneumonia. Patient feels much better after administration of IV fluids and antibiotics. Patient's oxygen saturation improved to 94 to 95% on room air after observation. Patient is low risk at this time for complications from pneumonia , as he does not have any medical comorbidities that would require admission and patient was discharged home with antibiotics. Patient given strict return precautions. All questions addressed and answered. Patient agrees with plan generalized Pain Score (Numeric/FACES): 10 - Related Data Allergies Allergy/AdvReac Type Severity Reaction Status Date / Time ibuprofen Allergy Hives Verified 11/08/19 06:55 Home Meds: Home Meds Ondansetron [Zofran ODT] 4 mg PO Q6H PRN #12 tab.dis 11/05/19 [Rx] Amoxicillin 500 mg PO BID 7 Days #14 capsule 11/08/19 [Rx] Azithromycin 250 mg PO DAILY 3 Days tablet 11/08/19 [Rx] Past Medical History HEENT History: Reports: None Cardiovascular History: Reports: Afib, Other (See Below) Other Cardiovascular History: enlarged heart valves. "sinus inversus" Respiratory History: Reports: Asthma Gastrointestinal History: Reports: None Genitourinary History: Reports: None Musculoskeletal History: Reports: None Neurological History: Reports: None Psychiatric History: Reports: None Endocrine/Metabolic History: Reports: None Hematologic History: Reports: None Immunologic History: Reports: None Oncologic (Cancer) History: Reports: None, Other (See Below) Other Oncologic History: "Stated he had black spots forming on lungs and he said it cleared up with medical marijauna" Dermatologic History: Reports: None - Infectious Disease History Infectious Disease History: Reports: None - Past Surgical History Head Surgeries/Procedures: Reports: None Other GI Surgeries/Procedures: "organs have been rotated in surgery" Social & Family History - Family History Family Medical History: Noncontributory - Tobacco Use Smoking Status *Q: Current Every Day Smoker Years of Tobacco use: 6 Packs/Tins Daily: 1 - Caffeine Use Caffeine Use: Reports: Coffee Caffeine Use Comment: Drinks a pot of coffe a day, one can of pop a day ED ROS ENT - Review of Systems Review Of Systems: See Below ED EXAM, ENT - Physical Exam Exam: See Below Course - Vital Signs Last Recorded V/S: Last Vital Signs Temp 37.9 C 11/08/19 08:36 Pulse 96 11/08/19 10:26 Resp 16 11/08/19 10:26 BP 111/61 11/08/19 10:26 Pulse Ox 91 L 11/08/19 10:26 - Orders/Labs/Meds Orders: Active Orders 24 hr Category Date Time Status RT Aerosol Therapy [RC] ASDIRECTED Care 11/08/19 07:13 Active Labs: Laboratory Tests 11/08/19 11/08/19 Range/Units 07:20 07:20 WBC 6.25 (4.0-11.0) K/uL RBC 4.34 L (4.50-5.90) M/uL Hgb 13.2 (13.0-17.0) g/dL Hct 39.0 (38.0-50.0) % MCV 89.9 (80.0-98.0) fL MCH 30.4 (27.0-32.0) pg MCHC 33.8 (31.0-37.0) g/dL RDW Std Deviation 41.5 (28.0-62.0) fl RDW Coeff of Dedrick 13 (11.0-15.0) % Plt Count 134 L (150-400) K/uL MPV 10.00 (7.40-12.00) fL Neut % (Auto) 76.3 (48.0-80.0) % Lymph % (Auto) 16.3 (16.0-40.0) % [place] % (Auto) 7.2 (0.0-15.0) % Eos % (Auto) 0.0 (0.0-7.0) % Baso % (Auto) 0.2 (0.0-1.5) % Neut # (Auto) 4.8 (1.4-5.7) K/uL Lymph # (Auto) 1.0 (0.6-2.4) K/uL [place] # (Auto) 0.5 (0.0-0.8) K/uL Eos # (Auto) 0.0 (0.0-0.7) K/uL Baso # (Auto) 0.0 (0.0-0.1) K/uL Nucleated RBC % 0.0 /100WBC Nucleated RBCs # 0 K/uL Sodium 138 (136-148) mmol/L Potassium 3.6 (3.5-5.1) mmol/L Chloride 100 (98-107) mmol/L Carbon Dioxide 27.0 (21.0-32.0) mmol/L BUN 6 L (7.0-18.0) mg/dL Creatinine 0.8 (0.8-1.3) mg/dL Est Cr Clr Drug Dosing 153.22 mL/min Estimated GFR (MDRD) > 60.0 ml/min Glucose 96 (74-106) mg/dL Calcium 8.2 L (8.5-10.1) mg/dL Total Bilirubin 0.5 (0.2-1.0) mg/dL AST 25 (15-37) IU/L ALT 22 (14-63) IU/L Alkaline Phosphatase 51 (46-116) U/L Total Protein 7.0 (6.4-8.2) g/dL Albumin 3.8 (3.4-5.0) g/dL Globulin 3.2 (2.6-4.0) g/dL Albumin/Globulin Ratio 1.2 (0.9-1.6) Meds: Medications Discontinued Medications Generic Name Dose Route Start Last Admin Trade Name Freq PRN Reason Stop Dose Admin Acetaminophen 650 mg 11/08/19 07:12 11/08/19 07:29 Tylenol PO 11/08/19 07:13 650 mg NOW ONE Administration Al Hydroxide/Mg Hydroxide 30 ml 11/08/19 09:15 11/08/19 09:19 Mag-Al Plus PO 11/08/19 09:16 30 ml ONETIME ONE Administration Al Hydroxide/Mg Hydroxide Confirm 11/08/19 09:17 Mag-Al Plus Administered 11/08/19 09:18 Dose 30 ml .ROUTE .STK-MED ONE Albuterol 2.5 mg 11/08/19 07:13 11/08/19 07:25 Proventil Neb Soln NEB 11/08/19 07:14 2.5 mg ONETIME ONE Administration Amoxicillin 500 mg 11/08/19 08:25 11/08/19 08:36 Amoxil PO 11/08/19 08:26 500 mg ONETIME ONE Administration Azithromycin 500 mg 11/08/19 08:26 11/08/19 08:35 Zithromax PO 11/08/19 08:27 500 mg ONETIME ONE Administration Sodium Chloride 1,000 mls @ 999 mls/hr 11/08/19 07:12 11/08/19 07:29 Normal Saline IV 11/08/19 08:12 999 mls/hr .BOLUS ONE Administration Sodium Chloride 1,000 mls @ 999 mls/hr 11/08/19 08:47 11/08/19 09:06 Normal Saline IV 11/08/19 09:47 999 mls/hr .BOLUS ONE Administration Metoclopramide HCl 10 mg 11/08/19 08:47 11/08/19 09:06 Reglan IVPUSH 11/08/19 08:48 10 mg ONETIME ONE Administration Ondansetron HCl 4 mg 11/08/19 07:12 11/08/19 07:28 Zofran IVPUSH 11/08/19 07:13 4 mg ONETIME ONE Administration Departure - Departure Time of Disposition: 10:27 Disposition: Home, Self-Care 01 Clinical Impression: Pneumonia - Discharge Information Prescriptions: Amoxicillin 500 mg PO BID 7 Days #14 capsule Azithromycin 250 mg PO DAILY 3 Days tablet Instructions: Community-Acquired Pneumonia, Adult, [id number] Referrals: PCP,None [Primary Care Provider] - Forms: ED Department Discharge Additional Instructions: The following information is given to patients seen in the emergency department who are being discharged to home. This information is to outline your options for follow-up care. We provide all patients seen in our emergency department with a follow-up referral. The need for follow-up, as well as the timing and circumstances, are variable depending upon the specifics of your emergency department visit. If you don't have a primary care physician on staff, we will provide you with a referral. We always advise you to contact your personal physician following an emergency department visit to inform them of the circumstance of the visit and for follow-up with them and/or the need for any referrals to a consulting specialist. The emergency department will also refer you to a specialist when appropriate. This referral assures that you have the opportunity for follow-up care with a specialist. All of these measure are taken in an effort to provide you with optimal care, which includes your follow-up. Under all circumstances we always encourage you to contact your private physician who remains a resource for coordinating your care. When calling for follow-up care, please make the office aware that this follow-up is from your recent emergency room visit. If for any reason you are refused follow-up, please contact the [facility] Emergency Department at and asked to speak to the emergency department charge nurse. Sepsis Event Note - Evaluation Sepsis Screening Result: No Definite Risk - Focused Exam Vital Signs: Vital Signs Temp Pulse Resp BP Pulse Ox 11/08/19 10:26 96 16 111/61 91 L 11/08/19 08:36 37.9 C 94 20 117/61 90 L 11/08/19 06:55 37.7 C 88 22 H 127/71 93 L Date Exam was Performed: 11/08/19 Time Exam was Performed: 12:09 - My Orders Last 24 Hours: My Active Orders 11/08/19 07:13 RT Aerosol Therapy [RC] ASDIRECTED - Assessment/Plan Last 24 Hours: My Active Orders 11/08/19 07:13 RT Aerosol Therapy [RC] ASDIRECTED
--- NOTE | 2019-11-08 08:24 | CR ---
Chest: 2 views of the chest were obtained. Comparison: Previous chest x-ray of 09/13/19. Heart size and mediastinum are normal. Mild increased density noted within the right lung base. Lungs otherwise are clear. Bony structures are unremarkable. Impression: 1. Findings suspicious for early right basilar pneumonia. Diagnostic code #3 This report was dictated in [place] Standard Time
[2019-11-08] MEDS ORDERED: Amoxicillin 500 MG Cap PO ONE (08:25)
[2019-11-08] MEDS ORDERED: Azithromycin 250 MG Tab PO ONE (08:26)
[2019-11-08] MEDS ORDERED: Metoclopramide 10 MG/2 ML SDV IVPUSH ONE (08:47)
[2019-11-08] MEDS ORDERED: Aluminum Hydroxide/Magnesium Hydroxide/Simethicone Susp 30 ML Cup PO ONE (09:15)
[2019-11-08] MEDS ORDERED: Aluminum Hydroxide/Magnesium Hydroxide/Simethicone Susp 30 ML Cup ONE (09:17)
== END 2019-11-08 10:35 | disposition home or self-care (01) ==
LOC: MW.ED 06:40
DX: J18.9 Pneumonia, unspecified organism (principal); I48.91 Unspecified atrial fibrillation; F17.210 Nicotine dependence, cigarettes, uncomplicated; Z88.8 Allergy status to other drugs, medicaments and biological substances
CPT/HCPCS: 36415; 71046; 80053; 85025; 94640; 96361; 96374; 96375; 99284; A9270; J2405; J2765; J7030; 99283

== ENCOUNTER 2019-12-06 11:25 | Emergency (ER) | payer SELFPAY ==
[2019-12-06] MEDS ORDERED: Sodium Chloride 0.9% 10 ML Syringe FLUSH PRN (11:27)
[2019-12-06] MEDS ORDERED: Sodium Chloride 0.9% 10 ML SDV IV PRN (11:27)
[2019-12-06] MEDS ORDERED: Sodium Chloride 0.9% 2.5 ML Syringe FLUSH PRN (11:27)
--- NOTE | 2019-12-06 12:03 | CT ---
Head CT Technique: Multiple axial sections through the brain were obtained. Intravenous contrast was not utilized. Comparison: No prior head CT study is available. Findings: Ventricles along with basal cisterns and sulci over the convexities appear within normal limits for the patient's age. No abnormal parenchymal densities are seen. No evidence of intracranial hemorrhage. No midline shift or mass-effect is seen. Bone window settings were reviewed. No acute calvarial abnormality is seen. Mucosal thickening is noted within the maxillary and ethmoid sinuses. Air-fluid levels are noted within the maxillary sinuses with findings raising the possibility of acute sinusitis. Impression: 1. Possible acute sinusitis. 2. No acute intracranial abnormality is identified. Diagnostic code #3 This report was dictated in [place] Standard Time
--- NOTE | 2019-12-06 12:13 | EDM.PDOC ---
ED HPI GENERAL MEDICAL PROBLEM - General Chief Complaint: Neuro Symptoms/Deficits Stated Complaint: POSSIBLE STROKE Time Seen by Provider: 12/06/19 11:25 Source of Information: Reports: Patient - History of Present Illness INITIAL COMMENTS - FREE TEXT/NARRATIVE: Patient states that while walking at work today, he had burning of his hands and feet. Next, his face began to tingle, then his left eye started twitching and blurring. This is been going on for about an hour prior to arrival. He cannot open his left eye all the way because the left upper eyelid is weak. He denied feeling weak in his arms or legs. He did not fall down. Cannot think of anything specific that makes the symptoms better or worse. Patient mentioned that on his father side a number of people of had strokes, including his father, paternal uncle, paternal grandmother, and patient's brother, who had a CVA in his 20s. Social history is positive for cigarettes alcohol, and marijuana use. - Related Data Allergies Allergy/AdvReac Type Severity Reaction Status Date / Time ibuprofen Allergy Hives Verified 12/06/19 12:23 Home Meds: Home Meds Ondansetron [Zofran ODT] 4 mg PO Q6H PRN #12 tab.dis 11/05/19 [Rx] Past Medical History HEENT History: Reports: None Cardiovascular History: Reports: Afib, Other (See Below) Other Cardiovascular History: enlarged heart valves. "sinus inversus" Respiratory History: Reports: Asthma Gastrointestinal History: Reports: None Genitourinary History: Reports: None Musculoskeletal History: Reports: None Neurological History: Reports: None Psychiatric History: Reports: None Endocrine/Metabolic History: Reports: None Hematologic History: Reports: None Immunologic History: Reports: None Oncologic (Cancer) History: Reports: None, Other (See Below) Other Oncologic History: "Stated he had black spots forming on lungs and he said it cleared up with medical marijauna" Dermatologic History: Reports: None - Infectious Disease History Infectious Disease History: Reports: None - Past Surgical History Head Surgeries/Procedures: Reports: None Other GI Surgeries/Procedures: "organs have been rotated in surgery" Social & Family History - Family History Family Medical History: Noncontributory - Caffeine Use Caffeine Use: Reports: Coffee Caffeine Use Comment: Drinks a pot of coffe a day, one can of pop a day ED ROS GENERAL - Review of Systems Review Of Systems: See Below Free Text/Narrative/Comment: Systems is positive for shortness of breath, left eye blurring, left eye twitching. Review of systems is negative for chest pain, palpitations, nausea and vomiting, fever, headache, fall, and gait difficulties. ED EXAM, NEURO - Physical Exam Exam: See Below Text/Narrative:: General: alert, well appearing, no acute distress HEENT: Atraumatic, normocephalic, pupils reactive, negative for conjunctival pallor or scleral icterus, mucous membranes moist, throat clear, handling oral secretions well. Neck: supple, nontender, trachea midline. Lungs: Clear to auscultation, breath sounds equal bilaterally, chest nontender. Heart: S1S2, regular, negative for clicks, rubs, or JVD. Abdomen: Soft, nondistended, nontender. Negative for masses or hepatosplenomegaly. Skin: warm, dry, good turgor. Musculoskeletal: soft compartments. Extremities: Atraumatic, negative for cords or calf pain. Neurovascular unremarkable. Neuro: Awake, alert, oriented. There is ptosis of the left upper eyelid. Extraocular motions are full and intact. Pupils are 2 mm equally round; accommodate to light. NIHSS 5: Left upper quadrant visiual field has decreased vision. L nasolabial fold weakness LUE 4/5 power and has drift LLE power 4/5 power and has drift Decr sensation in LLE Remaining cranial nerves II through XII unremarkable. Normal finger to target bilaterally. EKG INTERPRETATION EKG Interpretation Comments: 63 bpm normal sinus rhythm normal axis normal CA, prolonged QRS with a right bundle branch block pattern observed, normal QTC; no acute ST changes Course - Vital Signs Text/Narrative:: Head CT: No bleed, mass, shift; radiologist advises that there are air-fluid levels in the maxillary sinuses with findings raising the possibility of acute sinusitis Chest x-ray: No acute infiltrates Cmp: minimal elev glucose (112), otherwise unremarkable Cbc: nl Coags: nl PTT: nl Trop: neg TSH: UA: Urine drug: Ek bpm normal sinus rhythm normal axis normal CA, prolonged QRS with right bundle branch block present, normal QTC; no acute ST changes 12:25am Spoke with Dr. Bernabe. Accepts pt for transfer. Agrees with tPA. Advises angeli prior to tPA. 12:34pm Pts is now at bedside. She works where pt works. She says that she noticed pts L eye drooping at 9 am, which is an hr before pt noticed the drooping and burning. This would make pt out of the window for tPA. Also, pts L facial droop has resolved. There is still some ptosis, but it has improved. The degree of drift of LLE is less compared to initial presentation. Pt no longer has LUE drift. Will withhold tPA. 1:10pm patient has now decided he does not want to get transferred to [facility] saying that it is too far away and he wants to be in his own bed. He is also declining to be admitted here, in the hospital in [place]. He says he just simply does not want to be in the hospital and that he prefers his own environment at home over any other. I asked him if there is anything we could do to make it better so that he could get hospitalized at least somewhere. He stated that note, there is nothing else that we can do. He has made up his mind he is going go home to his own bed. I informed him that he is showing signs of what we believe is an acute stroke. I explained that means that if he does not get care in a timely manner, meaning of right now, today, being seen by neurologist, there is a risk that he could end up with permanent nervous system damage. That means, for example, his left eye, which is drooping now, might do permanently. The left side of his body, which is weaker than the right side, can stay that way. He verbalized understanding, and then stated to me that as long as the right side of his body works that he is still fine. Patient's is by his bedside. She is supporting his decision making, although it appears she wishes he would decide differently, as to why. Patient was advised he could return at any time, but that if he delays being seen by neurologist, there is a possibility that any current neurologic deficits he has could remain permanently. He verbalized understanding and will be leaving AGAINST MEDICAL ADVICE. Pt then did not want to wait for discharge papers and left. Last Recorded V/S: Last Vital Signs Temp 98.4 F 12/06/19 12:25 Pulse 62 12/06/19 12:25 Resp 20 02/16/20 12:25 BP 112/73 12/06/19 12:25 Pulse Ox 97 12/06/19 12:25 - Orders/Labs/Meds Orders: Active Orders 24 hr Category Date Time Status Assess Neurological Status [RC] ASDIRECTED Care 12/06/19 11:27 Active Bedrest [RC] ASDIRECTED Care 12/06/19 11:27 Active Blood Glucose Check, Bedside [RC] ONETIME Care 12/06/19 11:27 Active Cardiac Monitoring [RC] . DIRECTED Care 12/06/19 11:27 Active EKG Documentation Completion [RC] STAT Care 12/06/19 11:27 Active Height and Weight [RC] UPON Care 12/06/19 11:27 Active Initiate Acute Stroke Protocol [RC] STAT Care 12/06/19 11:27 Active NIH Stroke Scale [RC] ASDIRECTED Care 12/06/19 11:27 Active Nursing Bedside Swallow Screen [RC] ASDIRECTED Care 12/06/19 11:27 Active Oxygen Therapy [RC] ASDIRECTED Care 12/06/19 11:27 Active Stroke Education, General [RC] Click to Edit Care 12/06/19 11:27 Active Vital Signs [RC] Q15M Care 12/06/19 11:27 Active DRUG SCREEN, URINE [URCHEM] Stat Lab 12/06/19 11:55 Ordered UA RFX BERNY AND CULT IF INDIC [URIN] Stat Lab 12/06/19 11:27 Ordered Sodium Chloride 0.9% [Normal Saline] Med 12/06/19 11:27 Active 10 ml IV ASDIRECTED PRN Sodium Chloride 0.9% [Saline Flush] Med 12/06/19 11:27 Active 10 ml FLUSH ASDIRECTED PRN Sodium Chloride 0.9% [Saline Flush] Med 12/06/19 11:27 Active 2.5 ml FLUSH ASDIRECTED PRN Peripheral IV Insertion Adult [OM.PC] Stat Oth 12/06/19 11:27 Ordered Peripheral IV Insertion Adult [OM.PC] Stat Oth 12/06/19 11:27 Ordered Medication Orders Sodium Chloride (Saline Flush) 10 ml FLUSH ASDIRECTED PRN PRN Reason: Keep Vein Open Sodium Chloride (Saline Flush) 2.5 ml FLUSH ASDIRECTED PRN PRN Reason: Keep Vein Open Sodium Chloride (Normal Saline) 10 ml IV ASDIRECTED PRN PRN Reason: IV Use Labs: Laboratory Tests 12/06/19 12/06/19 12/06/19 Range/Units 11:41 11:41 11:41 WBC 7.17 (4.0-11.0) K/uL RBC 4.50 (4.50-5.90) M/uL Hgb 13.8 (13.0-17.0) g/dL Hct 40.7 (38.0-50.0) % MCV 90.4 (80.0-98.0) fL MCH 30.7 (27.0-32.0) pg MCHC 33.9 (31.0-37.0) g/dL RDW Std Deviation 43.5 (28.0-62.0) fl RDW Coeff of [place]rick 13 (11.0-15.0) % Plt Count 211 (150-400) K/uL MPV 9.70 (7.40-12.00) fL Neut % (Auto) 54.2 (48.0-80.0) % Lymph % (Auto) 39.7 (16.0-40.0) % [place] % (Auto) 5.0 (0.0-15.0) % Eos % (Auto) 1.0 (0.0-7.0) % Baso % (Auto) 0.1 (0.0-1.5) % Neut # (Auto) 3.9 (1.4-5.7) K/uL Lymph # (Auto) 2.9 H (0.6-2.4) K/uL [place] # (Auto) 0.4 (0.0-0.8) K/uL Eos # (Auto) 0.1 (0.0-0.7) K/uL Baso # (Auto) 0.0 (0.0-0.1) K/uL Nucleated RBC % 0.0 /100WBC Nucleated RBCs # 0 K/uL INR 1.03 APTT 27.5 (18.6-31.3) SEC Sodium 142 (136-148) mmol/L Potassium 3.7 (3.5-5.1) mmol/L Chloride 104 (98-107) mmol/L Carbon Dioxide 28.2 (21.0-32.0) mmol/L BUN 12 (7.0-18.0) mg/dL Creatinine 0.8 (0.8-1.3) mg/dL Est Cr Clr Drug Dosing TNP Estimated GFR (MDRD) > 60.0 ml/min Glucose 112 H (74-106) mg/dL Calcium 9.2 (8.5-10.1) mg/dL Total Bilirubin 1.7 H (0.2-1.0) mg/dL AST 18 (15-37) IU/L ALT 26 (14-63) IU/L Alkaline Phosphatase 68 (46-116) U/L Troponin I < 0.050 (0.000-0.056) ng/mL Total Protein 7.6 (6.4-8.2) g/dL Albumin 4.5 (3.4-5.0) g/dL Globulin 3.1 (2.6-4.0) g/dL Albumin/Globulin Ratio 1.5 (0.9-1.6) TSH 3rd Generation 0.87 (0.36-3.74) uIU/mL Meds: Medications Generic Name Dose Route Start Last Admin Trade Name Freq PRN Reason Stop Dose Admin Sodium Chloride 10 ml 12/06/19 11:27 Saline Flush FLUSH ASDIRECTED PRN Keep Vein Open Sodium Chloride 2.5 ml 12/06/19 11:27 Saline Flush FLUSH ASDIRECTED PRN Keep Vein Open Sodium Chloride 10 ml 12/06/19 11:27 Normal Saline IV ASDIRECTED PRN IV Use Discontinued Medications Generic Name Dose Route Start Last Admin Trade Name Freq PRN Reason Stop Dose Admin Alteplase, Recombinant Confirm 12/06/19 12:29 12/06/19 13:02 Activase Administered 12/06/19 12:30 Not Given Dose 100 mg .ROUTE .STK-MED ONE Departure - Departure Time of Disposition: 13:14 Disposition: Against Medical Advice 07 Condition: Undetermined Clinical Impression: Cerebrovascular accident (CVA) Qualifiers: CVA mechanism: other Qualified Code(s): I63.89 - Other cerebral infarction - Discharge Information Referrals: PCP,None [Primary Care Provider] - Forms: ED Department Discharge Sepsis Event Note - Focused Exam Vital Signs: Vital Signs Temp Pulse Resp BP Pulse Ox Pulse Ox 12/06/19 12:25 98.4 F 62 20 112/73 97 12/06/19 12:05 99.5 F 71 14 129/82 98 02/16/20 11:36 99.4 F 78 18 128/82 96 12/06/19 11:28 99.6 F 78 20 130/90 93 L 12/06/19 11:27 93 L 12/06/19 11:25 97.4 F 86 17 142/82 H 97 Date Exam was Performed: 12/06/19 Time Exam was Performed: 13:13 - My Orders Last 24 Hours: My Active Orders 12/06/19 11:55 DRUG SCREEN, URINE [URCHEM] Stat - Assessment/Plan Last 24 Hours: My Active Orders 12/06/19 11:55 DRUG SCREEN, URINE [URCHEM] Stat
[2019-12-06 12:18] LABS: BLOOD UREA NITROGEN,BUN 12 mg/dL (7.0-18.0); CARBON DIOXIDE,CO2 28.2 mmol/L (21.0-32.0); CHLORIDE,CL 104 mmol/L (98-107); GLUCOSE RANDOM 112 mg/dL (74-106); POTASSIUM,K 3.7 mmol/L (3.5-5.1); SODIUM,NA 142 mmol/L (136-148)
--- NOTE | 2019-12-06 12:39 | CR ---
Chest: Portable view of the chest was obtained. Comparison: Prior chest x-ray of 11/08/19. Heart size and mediastinum are normal. Lungs are clear with no acute parenchymal change. Bony structures are unremarkable. Impression: 1. Nothing acute is appreciated on portable chest x-ray. Diagnostic code #1 This report was dictated in [place] Standard Time
== END 2019-12-06 13:16 | disposition left against medical advice (07) ==
LOC: MW.ED 11:25
DX: I63.89 Other cerebral infarction (principal); I48.91 Unspecified atrial fibrillation; Z88.8 Allergy status to other drugs, medicaments and biological substances
CPT/HCPCS: 36415; 70450; 70450-26; 71045; 71045-26; 80053; 84443; 84484; 85025; 85610; 85730; 93005; 99284; 99284-25

== ENCOUNTER 2020-09-28 10:46 | Emergency (ER) | payer MEDICAID ==
--- NOTE | 2020-09-28 11:45 | PCM.SN.2 ---
- Free Text/Narrative Note: Heart rate = 73 bpm, normal sinus rhythm, normal QRS interval, no STEMI. EKG and rhythm strip interpreted by me at 1140
--- NOTE | 2020-09-28 11:52 | EDM.PDOC ---
ED HPI GENERAL MEDICAL PROBLEM - General Chief Complaint: Behavioral/Psych Stated Complaint: MENTAL ISSUES Time Seen by Provider: 09/28/20 10:47 Source of Information: Reports: Patient, Family History Limitations: Reports: No Limitations - History of Present Illness INITIAL COMMENTS - FREE TEXT/NARRATIVE: HISTORY AND PHYSICAL: History of present illness: Patient is a 29-year-old male who presents to the emergency room today with his significant other for concern of auditory hallucinations telling patient to do dangerous things. According to significant other, on their drive here, patient was hearing voices that tell him to jump out of a moving car. Patient agrees to hearing these voices and states that he has been hearing voices since he was 9 years old. Patient states typically he uses marijuana to help with the voices but has not had this for the past week and it has not been helping lately regardless. Patient states he is also having episodes of "blacking out "where he states he will suddenly not be aware and then will be standing next to the road. Patient significant other states that this is progressively worsening and is now including more dangerous activities so she brought him to the emergency room for further evaluation. Patient states he has not been formally diagnosed but has had these mental health concerns since he was 9 years old. Patient denies any other substance use other than marijuana. 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 Patient denies any other health history. Patient denies fever, chills, chest pain, shortness of breath, or cough. Denies headache, neck stiff ness, change in vision, syncope, or near syncope. Denies nausea, vomiting, abdominal pain, diarrhea, constipation, or dysuria. Has not noted any blood in urine or stool. Patient has been eating and drinking appropriately. Review of systems: As per history of present illness and below otherwise all systems reviewed and negative. Past medical history: As per history of present illness and as reviewed below otherwise noncontributory. Surgical history: As per history of present illness and as reviewed below otherwise noncontributory. Social history: See social history for further information Family history: As per history of present illness and as reviewed below otherwise noncontributory. Physical exam: General: Patient is alert, oriented, and in no acute distress. Patient sitting comfortably on exam table. HEENT: Atraumatic, normocephalic, pupils equal and reactive bilaterally, negative for conjunctival pallor or scleral icterus, mucous membranes moist, TMs normal bilaterally, throat clear, neck supple, nontender, trachea midline. No drooling or trismus noted. No meningeal signs. No hot potato voice noted. Lungs: Clear to auscultation, breath sounds equal bilaterally, chest nontender. Heart: S1S2, regular rate and rhythm without overt murmur Abdomen: Soft, nondistended, nontender. Negative for masses or hepatosplenomegaly. Negative for costovertebral tenderness. Pelvis: Stable nontender. Genitourinary: Deferred. Rectal: Deferred. Skin: Intact, warm, dry. No lesions or rashes noted. Extremities: Atraumatic, negative for cords or calf pain. Neurovascular unremarkable. Neuro: Awake, alert, oriented. Cranial nerves II through XII unremarkable. Cerebellum unremarkable. Motor and sensory unremarkable throughout. Exam nonfocal. Notes: 11:30: mental health involuntary hold paperwork completed after discussion with patient and I am concerned for him harming himself or other people due to auditory hallucinations / absence episodes. He does require emergent psychiatric inpatient transfer. 12:15: While awaiting labwork completion, patient becomes combative requesting to leave ED and states he is "not staying" as he pulls off his band and heads out of the ER aggressively. Law enforcement called to come assist. Patient left facility prior to law enforcements arrival. Patient saw driving off with his significant other driving the vehicle by myself and nursing staff. 12:25: Law enforcement made aware that patient eloped and requested to bring him back as he is on an involuntary psychiatric hold. Law enforcement states that they will not bring him back as we do not have "court ordered hold placed by a status controller." We made law enforcement aware of our concerns for his personal safety as well as the safety for others. 12:38: Reid Almanzar (Badge #[id number]) ([phone]) states that he made contact with the patient and cannot "legally force" him to come back to the ED despite the involuntary hold paperwork I had filled out and my concern for his safety/safety of others. 12:45: I made a call to the PD and spoke to Isai Garcia (Badge #[id number]) and was told that they cannot bring patient back to the ER against his will. He states I need to contact the States Cleaner Assistant and fill out a physical petition at the court house and was informed that there is "nothing they can do to assist to get patient back." 12:50: I called the States Cleaner Assistant office and spoke to Janeth ([phone]). I was instructed that I needed to call [facility] and fill out a petition for involuntary committal. 12:55: I called [facility] ([phone]) and spoke to Shannon who states she is not sure why I am filing out this paperwork as she has never heard it done this way before. She instructs me to call States Cleaner Assistant as she is unsure of this protocol. 13:20: I called back to the States Attorneys office and spoke to Janeth and was transferred to Elliot (web production assistant to states patent prosecution attorney) and was instructed that the involuntary hold paperwork I had filled out has no legal implications outside of the hospital and law enforcement cannot force patient to come to the ED and that I would need to fill out a petition for involuntary committal that I can print off online and then fax back to him that he can then have a status controller sign. I made both Janeth and Elliot aware of my concerns for patients safety / safety of others. 13:40 I printed and filled out the form online and faxed back to the States Cleaner Assistant office 15:50: Janeth from the States Cleaner Assistant office returned my call stating the status controller has approved and signed the form needed and law enforcement will pick patient up. Diagnostics: EKG, CBC, CMP, UA, UDS, Salicylate, Acetaminophen, Magnesium, TSH Therapeutics: None Impression: Severe auditory hallucinations Thoughts of self harm Plan: Patient eloped the ED Definitive disposition and diagnosis as appropriate pending reevaluation and review of above. - Related Data Allergies Allergy/AdvReac Type Severity Reaction Status Date / Time ibuprofen Allergy Hives Verified 12/06/19 12:23 Home Meds: Home Meds . 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" Respiratory History: Reports: Asthma Gastrointestinal History: Reports: None Genitourinary History: Reports: None Musculoskeletal History: Reports: None Neurological History: Reports: None Psychiatric History: Reports: Hallucinations, Other (See Below) Other Psychiatric History: "hearing voices" intermittently since he was 9 years old Endocrine/Metabolic History: Reports: None Hematologic History: Reports: None Immunologic History: Reports: None Oncologic (Cancer) History: Reports: None, Other (See Below) Other Oncologic History: "Stated he had black spots forming on lungs and he said it cleared up with medical marijauna" Dermatologic History: Reports: None - Infectious Disease History Infectious Disease History: Reports: None - Past Surgical History Head Surgeries/Procedures: Reports: None Other GI Surgeries/Procedures: "organs have been rotated in surgery" Social & Family History - Family History Family Medical History: No Pertinent Family History - Tobacco Use Tobacco Use Status *Q: Current Every Day Tobacco User Years of Tobacco use: 20 Packs/Tins Daily: 1 - Caffeine Use Caffeine Use: Reports: Coffee Caffeine Use Comment: Drinks a pot of coffe a day, one can of pop a day - Recreational Drug Use Recreational Drug Use: Yes Recreational Drug Type: Reports: Marijuana/Hashish ED ROS GENERAL - Review of Systems Review Of Systems: Comprehensive ROS is negative, except as noted in HPI. ED EXAM, GENERAL - Physical Exam Exam: See Below (see dictation) Course - Vital Signs Last Recorded V/S: Last Vital Signs Temp 97 F 09/28/20 11:10 Pulse 91 09/28/20 11:10 Resp 22 H 09/28/20 11:10 BP 164/101 H 09/28/20 11:10 Pulse Ox 99 09/28/20 11:10 - Orders/Labs/Meds Orders: Active Orders 24 hr Category Date Time Status EKG Documentation Completion [RC] STAT Care 09/28/20 11:21 Active Labs: Laboratory Tests 09/28/20 09/28/20 09/28/20 Range/Units 11:38 11:38 12:20 WBC 6.64 (4.0-11.0) K/uL RBC 4.78 (4.50-5.90) M/uL Hgb 14.9 (13.0-17.0) g/dL Hct 44.4 (38.0-50.0) % MCV 92.9 (80.0-98.0) fL MCH 31.2 (27.0-32.0) pg MCHC 33.6 (31.0-37.0) g/dL RDW Std Deviation 42.0 (28.0-62.0) fl RDW Coeff of Dedrick 12 (11.0-15.0) % Plt Count 264 (150-400) K/uL MPV 9.50 (7.40-12.00) fL Neut % (Auto) 59.2 (48.0-80.0) % Lymph % (Auto) 34.3 (16.0-40.0) % Marshall % (Auto) 4.8 (0.0-15.0) % Eos % (Auto) 1.5 (0.0-7.0) % Baso % (Auto) 0.2 (0.0-1.5) % Neut # (Auto) 3.9 (1.4-5.7) K/uL Lymph # (Auto) 2.3 (0.6-2.4) K/uL Marshall # (Auto) 0.3 (0.0-0.8) K/uL Eos # (Auto) 0.1 (0.0-0.7) K/uL Baso # (Auto) 0.0 (0.0-0.1) K/uL Nucleated RBC % 0.0 /100WBC Nucleated RBCs # 0 K/uL Sodium 142 (136-148) mmol/L Potassium 4.2 (3.5-5.1) mmol/L Chloride 104 (98-107) mmol/L Carbon Dioxide 26.9 (21.0-32.0) mmol/L BUN 9 (7.0-18.0) mg/dL Creatinine 0.8 (0.8-1.3) mg/dL Est Cr Clr Drug Dosing 150.89 mL/min Estimated GFR (MDRD) > 60.0 ml/min Glucose 97 (74-106) mg/dL Calcium 9.3 (8.5-10.1) mg/dL Magnesium 1.8 (1.8-2.4) mg/dL Total Bilirubin 1.7 H (0.2-1.0) mg/dL AST 21 (15-37) IU/L ALT 34 (14-63) IU/L Alkaline Phosphatase 70 (46-116) U/L Total Protein 7.8 (6.4-8.2) g/dL Albumin 4.5 (3.4-5.0) g/dL Globulin 3.3 (2.6-4.0) g/dL Albumin/Globulin Ratio 1.4 (0.9-1.6) TSH 3rd Generation 2.46 (0.36-3.74) uIU/mL Urine Color YELLOW Urine Appearance CLEAR Urine pH 7.5 (5.0-8.0) Ur Specific Manvel 1.010 (1.001-1.035) Urine Protein NEGATIVE (NEGATIVE) mg/dL Urine Glucose (UA) NEGATIVE (NEGATIVE) mg/dL Urine Ketones NEGATIVE (NEGATIVE) mg/dL Urine Occult Blood NEGATIVE (NEGATIVE) Urine Nitrite NEGATIVE (NEGATIVE) Urine Bilirubin NEGATIVE (NEGATIVE) Urine Urobilinogen 0.2 (<2.0) EU/dL Ur Leukocyte Esterase NEGATIVE (NEGATIVE) Urine RBC 0-1 (0-2/HPF) Urine WBC 0-1 (0-5/HPF) Ur Epithelial Cells OCCASIONAL (NONE-FEW) Urine Bacteria NEGATIVE (NEGATIVE) Salicylates 0.8 (0-20) mg/dL Urine Opiates Screen (NEGATIVE) Ur Oxycodone Screen (NEGATIVE) Urine Methadone Screen (NEGATIVE) Acetaminophen <2.0 ug/mL Ur Barbiturates Screen (NEGATIVE) Ur Phencyclidine Scrn (NEGATIVE) Ur Amphetamine Screen (NEGATIVE) U Methamphetamines Scrn (NEGATIVE) U Benzodiazepines Scrn (NEGATIVE) U Cocaine Metab Screen (NEGATIVE) U Marijuana (THC) Screen (NEGATIVE) Ethyl Alcohol < 3.0 mg/dL 09/28/20 Range/Units 12:20 WBC (4.0-11.0) K/uL RBC (4.50-5.90) M/uL Hgb (13.0-17.0) g/dL Hct (38.0-50.0) % MCV (80.0-98.0) fL MCH (27.0-32.0) pg MCHC (31.0-37.0) g/dL RDW Std Deviation (28.0-62.0) fl RDW Coeff of Dderick (11.0-15.0) % Plt Count (150-400) K/uL MPV (7.40-12.00) fL Neut % (Auto) (48.0-80.0) % Lymph % (Auto) (16.0-40.0) % Marshall % (Auto) (0.0-15.0) % Eos % (Auto) (0.0-7.0) % Baso % (Auto) (0.0-1.5) % Neut # (Auto) (1.4-5.7) K/uL Lymph # (Auto) (0.6-2.4) K/uL Marshall # (Auto) (0.0-0.8) K/uL Eos # (Auto) (0.0-0.7) K/uL Baso # (Auto) (0.0-0.1) K/uL Nucleated RBC % /100WBC Nucleated RBCs # K/uL Sodium (136-148) mmol/L Potassium (3.5-5.1) mmol/L Chloride (98-107) mmol/L Carbon Dioxide (21.0-32.0) mmol/L BUN (7.0-18.0) mg/dL Creatinine (0.8-1.3) mg/dL Est Cr Clr Drug Dosing mL/min Estimated GFR (MDRD) ml/min Glucose (74-106) mg/dL Calcium (8.5-10.1) mg/dL Magnesium (1.8-2.4) mg/dL Total Bilirubin (0.2-1.0) mg/dL AST (15-37) IU/L ALT (14-63) IU/L Alkaline Phosphatase (46-116) U/L Total Protein (6.4-8.2) g/dL Albumin (3.4-5.0) g/dL Globulin (2.6-4.0) g/dL Albumin/Globulin Ratio (0.9-1.6) TSH 3rd Generation (0.36-3.74) uIU/mL Urine Color Urine Appearance Urine pH (5.0-8.0) Ur Specific Manvel (1.001-1.035) Urine Protein (NEGATIVE) mg/dL Urine Glucose (UA) (NEGATIVE) mg/dL Urine Ketones (NEGATIVE) mg/dL Urine Occult Blood (NEGATIVE) Urine Nitrite (NEGATIVE) Urine Bilirubin (NEGATIVE) Urine Urobilinogen (<2.0) EU/dL Ur Leukocyte Esterase (NEGATIVE) Urine RBC (0-2/HPF) Urine WBC (0-5/HPF) Ur Epithelial Cells (NONE-FEW) Urine Bacteria (NEGATIVE) Salicylates (0-20) mg/dL Urine Opiates Screen NEGATIVE (NEGATIVE) Ur Oxycodone Screen NEGATIVE (NEGATIVE) Urine Methadone Screen NEGATIVE (NEGATIVE) Acetaminophen ug/mL Ur Barbiturates Screen NEGATIVE (NEGATIVE) Ur Phencyclidine Scrn NEGATIVE (NEGATIVE) Ur Amphetamine Screen NEGATIVE (NEGATIVE) U Methamphetamines Scrn NEGATIVE (NEGATIVE) U Benzodiazepines Scrn NEGATIVE (NEGATIVE) U Cocaine Metab Screen NEGATIVE (NEGATIVE) U Marijuana (THC) Screen POSITIVE (NEGATIVE) Ethyl Alcohol mg/dL Departure - Departure Time of Disposition: 12:15 Disposition: Eloped 07 Clinical Impression: Severe auditory hallucinations, Thoughts of self harm - Discharge Information Referrals: Mary Lou Tolentino MD [Primary Care Provider] - Forms: ED Department Discharge Sepsis Event Note (ED) - Evaluation Sepsis Screening Result: No Definite Risk - Focused Exam Vital Signs: Vital Signs Temp Pulse Resp BP Pulse Ox 09/28/20 11:10 97 F 91 22 H 164/101 H 99 - My Orders Last 24 Hours: My Active Orders 09/28/20 11:21 EKG Documentation Completion [RC] STAT - Assessment/Plan Last 24 Hours: My Active Orders 09/28/20 11:21 EKG Documentation Completion [RC] STAT
[2020-09-28 12:17] LABS: ACETAMINOPHEN <2.0 ug/mL
[2020-09-28 12:24] LABS: BLOOD UREA NITROGEN,BUN 9 mg/dL (7.0-18.0); CARBON DIOXIDE,CO2 26.9 mmol/L (21.0-32.0); CHLORIDE,CL 104 mmol/L (98-107); GLUCOSE RANDOM 97 mg/dL (74-106); POTASSIUM,K 4.2 mmol/L (3.5-5.1); SODIUM,NA 142 mmol/L (136-148)
== END 2020-09-28 12:21 | disposition left against medical advice (07) ==
LOC: MW.ED 10:46
DX: R44.3 Hallucinations, unspecified (principal); F17.210 Nicotine dependence, cigarettes, uncomplicated; I48.91 Unspecified atrial fibrillation; J45.909 Unspecified asthma, uncomplicated; R45.851 Suicidal ideations; Z88.6 Allergy status to analgesic agent
CPT/HCPCS: 36415; 80053; 80305-QW; 80307; 81001; 83735; 84443; 85025; 93005; 93010; 99285; 99285-25

== ENCOUNTER 2020-09-28 17:56 | Emergency (ER) | payer MEDICAID ==
--- NOTE | 2020-09-28 18:07 | EDM.PDOC ---
ED HPI GENERAL MEDICAL PROBLEM - General Chief Complaint: Behavioral/Psych Time Seen by Provider: 09/28/20 18:00 Source of Information: Reports: Patient, Police History Limitations: Reports: No Limitations - History of Present Illness INITIAL COMMENTS - FREE TEXT/NARRATIVE: HISTORY AND PHYSICAL: History of present illness: Patient is a 29 year old male who presents to the ED today in law enforcement cu stody on a psychiatric committal for transfer for inpatient psychiatric evaluation. I personally saw person earlier today and he informed me he is hearing voices that tell him to do things and he almost jumped out of a moving vehicle on his way to the ED earlier because voices told him to. He also expresses blacking out episodes where he does not remember his actions. From prior excalation, hold work paperwork was filled out at his initial visit and he eloped the ED and law enforcement required a placing judge to formally approve paperwork before they would return him to the ED. Patient denies fever, chills, chest pain, shortness of breath, or cough. Denies headache, neck stiff ness, change in vision, syncope, or near syncope. Denies nausea, vomiting, abdominal pain, diarrhea, constipation, or dysuria. Has not noted any blood in urine or stool. Patient has been eating and drinking appropriately. Review of systems: As per history of present illness and below otherwise all systems reviewed and negative. Past medical history: As per history of present illness and as reviewed below otherwise noncontributory. Surgical history: As per history of present illness and as reviewed below otherwise noncontributory. Social history: See social history for further information Family history: As per history of present illness and as reviewed below otherwise noncontributory. Physical exam: General: Patient is alert, oriented, and in no acute distress. Patient sitting comfortably on exam table. HEENT: Atraumatic, normocephalic, pupils equal and reactive bilaterally, negative for conjunctival pallor or scleral icterus, mucous membranes moist, TMs normal bilaterally, throat clear, neck supple, nontender, trachea midline. No drooling or trismus noted. No meningeal signs. No hot potato voice noted. Lungs: Clear to auscultation, breath sounds equal bilaterally, chest nontender. Heart: S1S2, regular rate and rhythm without overt murmur Abdomen: Soft, nondistended, nontender. Negative for masses or hepatosplenomegaly. Negative for costovertebral tenderness. Pelvis: Stable nontender. Genitourinary: Deferred. Rectal: Deferred. Skin: Intact, warm, dry. No lesions or rashes noted. Extremities: Atraumatic, negative for cords or calf pain. Neurovascular unremarkable. Neuro: Awake, alert, oriented. Cranial nerves II through XII unremarkable. Cerebellum unremarkable. Motor and sensory unremarkable throughout. Exam nonfocal. Notes: Dr. Penaloza, psychiatry at [facility], consulted on patient and accepting of transfer. Patient transfer via law enforcement to [facility]. Diagnostics: None (were already performed earlier today) Therapeutics: None Impression: Medical screening exam Auditory hallucinations Thoughts of self harm Plan: Transfer to Dr. Penaloza via law enforcement [facility] Definitive disposition and diagnosis as appropriate pending reevaluation and review of above. - Related Data Allergies Allergy/AdvReac Type Severity Reaction Status Date / Time ibuprofen Allergy Hives Verified 12/06/19 12:23 Home Meds: Home Meds . 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" Respiratory History: Reports: Asthma Gastrointestinal History: Reports: None Genitourinary History: Reports: None Musculoskeletal History: Reports: None Neurological History: Reports: None Psychiatric History: Reports: Hallucinations, Other (See Below) Other Psychiatric History: "hearing voices" intermittently since he was 9 years old Endocrine/Metabolic History: Reports: None Hematologic History: Reports: None Immunologic History: Reports: None Oncologic (Cancer) History: Reports: None, Other (See Below) Other Oncologic History: "Stated he had black spots forming on lungs and he said it cleared up with medical marijauna" Dermatologic History: Reports: None - Infectious Disease History Infectious Disease History: Reports: None - Past Surgical History Head Surgeries/Procedures: Reports: None Other GI Surgeries/Procedures: "organs have been rotated in surgery" Social & Family History - Family History Family Medical History: No Pertinent Family History - Caffeine Use Caffeine Use: Reports: Coffee Caffeine Use Comment: Drinks a pot of coffe a day, one can of pop a day ED ROS GENERAL - Review of Systems Review Of Systems: Comprehensive ROS is negative, except as noted in HPI. ED EXAM, GENERAL - Physical Exam Exam: See Below (see dictation) Course - Vital Signs Last Recorded V/S: Last Vital Signs Temp 97.8 F 09/28/20 18:02 Pulse 105 H 09/28/20 18:02 Resp 18 09/28/20 18:02 BP 147/98 H 09/28/20 18:02 Pulse Ox 97 09/28/20 18:02 Departure - Departure Time of Disposition: 18:27 Disposition: DC/Tfer to Acute Hospital 02 Clinical Impression: Verbal auditory hallucination, Thoughts of self harm - Discharge Information Referrals: PCP,None [Primary Care Provider] - Forms: ED Department Discharge Sepsis Event Note (ED) - Focused Exam Vital Signs: Vital Signs Temp Pulse Resp BP Pulse Ox 09/28/20 18:02 97.8 F 105 H 18 147/98 H 97
== END 2020-09-28 19:08 ==
LOC: MW.ED 17:56
DX: R44.0 Auditory hallucinations (principal); R45.851 Suicidal ideations; I48.91 Unspecified atrial fibrillation; J45.909 Unspecified asthma, uncomplicated; Z88.6 Allergy status to analgesic agent
CPT/HCPCS: 99284

== ENCOUNTER 2021-03-08 09:48 | Emergency (ER) | payer MEDICAID, OTHER ==
[2021-03-08] MEDS ORDERED: Acetaminophen/HYDROcodone 325-5 MG Tab PO ONE (10:13)
--- NOTE | 2021-03-08 10:26 | EDM.PDOC ---
ED HPI GENERAL MEDICAL PROBLEM - General Chief Complaint: Lower Extremity Injury/Pain Stated Complaint: L KNEE CYST PAIN Time Seen by Provider: 03/08/21 09:49 Source of Information: Reports: Patient History Limitations: Reports: No Limitations - History of Present Illness INITIAL COMMENTS - FREE TEXT/NARRATIVE: HISTORY AND PHYSICAL: History of present illness: Patient is a 30-year-old male who presents to the emergency department with left knee pain. Patient states that he has had a cyst in his left knee which developed about a year ago. Patient states that 1 week ago he was moving a heavy object for his work and felt a pop in the back of his knee and felt that his knee was unstable at that time and was going to give out. Patient states that 2 days ago he was sitting on his couch and without movement his knee popped and instantly the pain increased. Patient states that his pain oscillates between a 5 and an 8 out of 10. Patient states that for the pain he is taking delta 8 THC which she normally takes for anxiety and he also took an Excedrin this morning. Patient states that he has no previous injuries aside from the above-stated to the left knee. Patient states that he has an appointment with Dr. Radford, Orthopedist, this upcoming Saturday. He offers no systemic complaints. Review of systems: As per history of present illness and below otherwise all systems reviewed and negative. Past medical history: As per history of present illness and as reviewed below otherwise noncontributory. Surgical history: As per history of present illness and as reviewed below otherwise noncontributory. Social history: See social history for further information Family history: As per history of present illness and as reviewed below otherwise noncontributory. Physical exam: General: Well developed and well nourished. Alert and orientated x 3. Nontoxic in appearance and in mild distress. Vital signs are stable and have been reviewed by me. Nursing notes were reviewed. HEENT: Atraumatic, normocephalic, pupils equal and reactive bilaterally, negative for conjunctival pallor or scleral icterus, mucous membranes moist, TMs normal bilaterally, throat clear, neck supple, nontender, trachea midline. No drooling or trismus noted. No meningeal signs. No hot potato voice noted. Lungs: Clear to auscultation bilaterally. No wheezes, rales, or rhonchi. Chest nontender. Normal work of breathing, no accessory muscles used. Heart: S1S2, regular rate and rhythm without overt murmur, gallops, or rubs. No JVD. No peripheral edema Abdomen: Soft, nondistended, nontender. Normoactive bowel sounds. Negative for masses or costovertebral tenderness. Skin: Intact, warm, dry. No lesions or rashes noted. Hematologic: No petechiae or purpra. Mucosa appropriate color and normal nail bed color and refill. Extremities: Atraumatic, moves all extremities except left knee, per self without difficulty or deficits, negative for cords or calf pain. Neurovascular unremarkable. Left knee: Upon examination left knee is slightly edematous compared to right knee but without erythema or ecchymosis. Patient reports global knee pain with all maneuvers. Active and passive range of motion limited due to pain. Mild joint effusion noted with patellar ballottement test. Ligamentous exam shows ligaments intact with strong endpoints. Majority of pain in the knee along the posterior aspect patient tearful upon examination. Neuro: Awake, alert, oriented. Cranial nerves II through XII unremarkable. Cerebellum unremarkable. Motor and sensory unremarkable throughout. Exam nonfocal. Psychiatric: Mood and affect are appropriate. Normal thought process. Answering questions appropriately. Notes: *This patient was seen and evaluated during the 2019 SARS-CoV-2 novel cor onavirus pandemic period. Community viral transmission is ongoing at time of this encounter and the emergency department is operating under pandemic response procedures. Patient is a 30-year-old male who presents to the emergency department with a 1 week history of acute knee pain and a 2-day history of worsening knee pain. Upon examination patient is uncomfortable and unwilling/unable to bend the knee. Examination shows that there is a mild effusion of the knee but no erythema or ecchymosis noted. Patient tearful on examination of the knee during ligamentous test. Due to the patient's presentation and examination ordered a 3 view knee x-ray. Will provide immediate pain relief in the emergency department with Sukhjinder. Will discuss with patient short-term treatment options until his a ppointment with Dr. Radford on Saturday. I have talked with the patient about today's findings, in addition to providing specific details for plan of care. Reassessment at the time of disposition demonstrates that the patient is in no acute distress. The patient is stable for discharge, counseling was provided and we discussed in great detail signs and symptoms that would prompt them to return to the Emergency Department. Medication, follow up and supportive care measures were reviewed and discussed. Voices understanding and is agreeable to plan of care. Denies any further questions or concerns at this time. Diagnostics: Three-view knee x-ray Therapeutics: [place], knee immobilizer, crutches Prescription: Tylenol #3 Impression: Left knee pain Plan: 1. You were evaluated today on an emergent basis. Your x-ray shows no acute findings. Rest, ice, and elevate your extremity as able. Use the crutches as directed. 2. You use Tylenol and Excedrin as needed for pain and fever management. Tramadol as needed for pain management. 3. Keep your appointment with Dr Radford, orthopedics, on Saturday () at 11am in the Building. 4. If your symptoms should worsen, new symptoms develop or any of the signs and symptoms we discussed should arise please return to the emergency room or call 911 (if needed). Definitive disposition and diagnosis as appropriate pending reevaluation and mariel dsouza of above. Left Knee Pain Score (Numeric/FACES): 5 - Related Data Allergies Allergy/AdvReac Type Severity Reaction Status Date / Time ibuprofen Allergy Hives Verified 03/08/21 10:04 Home Meds: Home Meds Acetaminophen/Codeine [Tylenol with Codeine No.3 300MG/30MG] 1 tab PO Q4H PRN #15 tab 03/08/21 [Rx] Past Medical History HEENT History: Reports: None Cardiovascular History: Reports: Afib, Other (See Below) Other Cardiovascular History: enlarged heart valves. "sinus inversus" Respiratory History: Reports: Asthma Gastrointestinal History: Reports: None Genitourinary History: Reports: None Musculoskeletal History: Reports: None Neurological History: Reports: None Psychiatric History: Reports: Hallucinations, Other (See Below) Other Psychiatric History: "hearing voices" intermittently since he was 9 years old Endocrine/Metabolic History: Reports: None Hematologic History: Reports: None Immunologic History: Reports: None Oncologic (Cancer) History: Reports: None, Other (See Below) Other Oncologic History: "Stated he had black spots forming on lungs and he said it cleared up with medical marijauna" Dermatologic History: Reports: None - Infectious Disease History Infectious Disease History: Reports: None - Past Surgical History Head Surgeries/Procedures: Reports: None Other GI Surgeries/Procedures: "organs have been rotated in surgery" Social & Family History - Family History Family Medical History: No Pertinent Family History - Tobacco Use Tobacco Use Status *Q: Current Every Day Tobacco User Years of Tobacco use: 10 Packs/Tins Daily: 1 - Caffeine Use Caffeine Use: Reports: Coffee Caffeine Use Comment: Drinks a pot of coffe a day, one can of pop a day - Recreational Drug Use Recreational Drug Use: Yes Recreational Drug Type: Reports: Marijuana/Hashish Recreational Drug Use Frequency: Daily Review of Systems - Review of Systems Review Of Systems: Comprehensive ROS is negative, except as noted in HPI. ED EXAM, GENERAL - Physical Exam Exam: See Below (See dictation) Course - Vital Signs Last Recorded V/S: Last Vital Signs Temp 98.3 F 03/08/21 12:05 Pulse 57 L 03/08/21 12:05 Resp 16 03/08/21 10:04 BP 106/74 03/08/21 12:05 Pulse Ox 95 03/08/21 12:05 - Orders/Labs/Meds Orders: Active Orders 24 hr Category Date Time Status DME for Discharge [COMM] Stat Oth 03/08/21 11:46 Ordered Meds: Medications Discontinued Medications Generic Name Dose Route Start Last Admin Trade Name Freq PRN Reason Stop Dose Admin Hydrocodone Bitart/Acetaminophen 1 tab 03/08/21 10:13 03/08/21 10:26 Acetaminophen/Hydrocodone 325-5 Mg Tab PO 03/08/21 10:14 1 tab ONETIME ONE Administration Departure - Departure Time of Disposition: 14:49 Disposition: Home, Self-Care 01 Clinical Impression: Knee injury Qualifiers: Encounter type: initial encounter Laterality: left Qualified Code(s): S89.92XA - Unspecified injury of left lower leg, initial encounter - Discharge Information Prescriptions: Acetaminophen/Codeine [Tylenol with Codeine No.3 300MG/30MG] 1 tab PO Q4H PRN #15 tab PRN Reason: Pain Instructions: How to Use a Knee Immobilizer, [id number] Referrals: Rosita Gao, [employer] MANAGER [Primary Care Provider] - Forms: ED Department Discharge Sepsis Event Note (ED) - Evaluation Sepsis Screening Result: No Definite Risk - Focused Exam Vital Signs: Vital Signs Temp Pulse Resp BP Pulse Ox 03/08/21 12:05 98.3 F 57 L 106/74 95 03/08/21 10:04 97 F 88 16 138/90 96 - My Orders Last 24 Hours: My Active Orders 03/08/21 11:46 DME for Discharge [COMM] Stat - Assessment/Plan Last 24 Hours: My Active Orders 03/08/21 11:46 DME for Discharge [COMM] Stat
--- NOTE | 2021-03-08 11:39 | CR ---
Indication: Knee pain Technique: Left knee 3 views Comparison: 01/05/2020 Findings: Bones: Alignment is normal. No fractures or bone lesions. Joint spaces: Joint spaces are well maintained. No degenerative changes. No sign of joint effusion. Soft tissues: Unremarkable. Impression: No findings to explain pain. Dictated by Handy Canchola MD @ 03/08/2021 11:38:[address] Handy Canchola @ Mar 08 2021 11:38AM
== END 2021-03-08 12:08 | disposition home or self-care (01) ==
LOC: MW.ED 09:48
DX: S89.92XA Unspecified injury of left lower leg, initial encounter (principal); Z88.8 Allergy status to other drugs, medicaments and biological substances; Z72.0 Tobacco use; X50.1XXA Overexertion from prolonged static or awkward postures, initial encounter; Y99.0 Civilian activity done for income or pay
CPT/HCPCS: 73562; 99283; A9270

== ENCOUNTER 2021-11-27 14:48 | Emergency (ER) | payer MEDICAID ==
[2021-11-27] MEDS ORDERED: Acetaminophen 500 MG Tab PO ONE (15:06)
[2021-11-27] MEDS ORDERED: Ondansetron 4 MG/2 ML SDV IVPUSH ONE (15:06)
[2021-11-27] MEDS ORDERED: Sodium Chloride 0.9% 1,000 ML IV ONE (15:06)
[2021-11-27] MEDS ORDERED: Morphine 4 MG/ML VIAL IVPUSH ONE (15:07)
[2021-11-27 15:56] LABS: BLOOD UREA NITROGEN,BUN 6 mg/dL (7.0-18.0); CARBON DIOXIDE,CO2 24.7 mmol/L (21.0-32.0); CHLORIDE,CL 101 mmol/L (98-107); GLUCOSE RANDOM 91 mg/dL (74-106); SODIUM,NA 138 mmol/L (136-148)
[2021-11-27 16:18] LABS: CORONAVIRUS COVID-19 NAA POSITIVE (NEGATIVE); INFLUENZA A NAA NEGATIVE (NEGATIVE); INFLUENZA B NAA NEGATIVE (NEGATIVE)
== END 2021-11-27 16:45 | disposition home or self-care (01) ==
LOC: MW.ED 14:48
DX: U07.1 COVID-19 (principal); Z88.8 Allergy status to other drugs, medicaments and biological substances
CPT/HCPCS: 0240U; 36415; 71045; 80053; 84484; 85025; 85379; 93005; 96374; 96375; 99285; A9270; J2270; J2405; J7030

== ENCOUNTER 2022-04-16 09:23 | Emergency (ER) | payer MEDICAID ==
[2022-04-16] MEDS ORDERED: Aspirin 81 MG Tab.Chew PO ONE (09:26)
[2022-04-16] MEDS ORDERED: Albuterol/Ipratropium 3.0-0.5 MG/3 ML Neb Soln NEB ONE (09:55)
[2022-04-16 11:16] LABS: CARBON DIOXIDE,CO2 26.9 mmol/L (21.0-32.0); POTASSIUM,K 4.6 mmol/L (3.5-5.1)
[2022-04-16] MEDS ORDERED: predniSONE 20 MG Tab PO ONE (11:19)
== END 2022-04-16 11:52 | disposition home or self-care (01) ==
LOC: MW.ED 09:23
DX: J20.9 Acute bronchitis, unspecified (principal); I48.91 Unspecified atrial fibrillation; Z86.73 Personal history of transient ischemic attack (TIA), and cerebral infarction without residual deficits; Z88.8 Allergy status to other drugs, medicaments and biological substances
CPT/HCPCS: 36415; 71045; 80048; 83735; 84484; 85025; 93005; 99285; A9270; 93010; 99284; J7620-GY

== ENCOUNTER 2022-06-24 11:56 | Emergency (ER) | payer MEDICAID ==
[2022-06-24] MEDS ORDERED: Lidocaine 1% PF 2 ML SDV INJECT ONE (12:01)
== END 2022-06-24 12:47 | disposition home or self-care (01) ==
LOC: MW.ED 11:56
DX: S61.011A Laceration without foreign body of right thumb without damage to nail, initial encounter (principal); I50.9 Heart failure, unspecified; Z88.6 Allergy status to analgesic agent; Z86.16 Personal history of COVID-19; W26.8XXA Contact with other sharp object(s), not elsewhere classified, initial encounter
CPT/HCPCS: 73140-26-F5; 73140-F5; 99283

== ENCOUNTER 2022-11-04 17:16 | Emergency (ER) | payer MEDICAID ==
[2022-11-04] MEDS ORDERED: Lidocaine 1% PF 2 ML SDV INJECT STA (18:14)
[2022-11-04] MEDS ORDERED: Lidocaine 1% 5 ML VIAL INJECT STA (18:19)
[2022-11-04] MEDS ORDERED: Octyl 2-Cyanoacrylate 0.5 g/0.5 mL 1 APPLIC TUBE TOP STA (19:04)
[2022-11-04] MEDS ORDERED: Octyl 2-Cyanoacrylate 1 g/1 mL 1 APPLIC PEN ONE (19:09)
[2022-11-04] MEDS ORDERED: Octyl 2-Cyanoacrylate 1 g/1 mL 1 APPLIC PEN TOP STA (19:09)
== END 2022-11-04 19:22 | disposition home or self-care (01) ==
LOC: MW.ED 17:16
DX: S61.011A Laceration without foreign body of right thumb without damage to nail, initial encounter (principal); I48.91 Unspecified atrial fibrillation; I50.9 Heart failure, unspecified; J45.909 Unspecified asthma, uncomplicated; Z88.6 Allergy status to analgesic agent; Z72.0 Tobacco use; W25.XXXA Contact with sharp glass, initial encounter
CPT/HCPCS: 12002; 99282; A9270; J3490

== ENCOUNTER 2023-02-05 11:42 | Emergency (ER) | payer MEDICAID ==
[2023-02-05] MEDS ORDERED: Sodium Chloride 0.9% 2.5 ML Syringe FLUSH PRN (12:07)
[2023-02-05] MEDS ORDERED: Sodium Chloride 0.9% 10 ML Syringe FLUSH PRN (12:07)
[2023-02-05] MEDS ORDERED: Prochlorperazine 10 MG/2 ML SDV IVPUSH STA (12:09)
[2023-02-05] MEDS ORDERED: Sodium Chloride 0.9% 1,000 ML IV STA (12:09)
[2023-02-05] MEDS ORDERED: Magnesium Sulfate/Water 2 GM in Premix Bag 1 BAG IV STA (12:10)
[2023-02-05] MEDS ORDERED: Acetaminophen 500 MG Tab PO STA (12:11)
[2023-02-05 12:40] LABS: CARBON DIOXIDE,CO2 29.2 mmol/L (21.0-32.0); POTASSIUM,K 4.5 mmol/L (3.5-5.1)
[2023-02-05 13:15] LABS: CORONAVIRUS COVID-19 NAA NEGATIVE (NEGATIVE); INFLUENZA A NAA NEGATIVE (NEGATIVE); INFLUENZA B NAA NEGATIVE (NEGATIVE)
== END 2023-02-05 14:16 | disposition home or self-care (01) ==
LOC: MW.ED 11:42
DX: J01.10 Acute frontal sinusitis, unspecified (principal); M54.50 Low back pain, unspecified; F17.210 Nicotine dependence, cigarettes, uncomplicated; I48.91 Unspecified atrial fibrillation; I50.9 Heart failure, unspecified; J45.909 Unspecified asthma, uncomplicated; Z20.822 Contact with and (suspected) exposure to COVID-19; Z86.16 Personal history of COVID-19; Z86.73 Personal history of transient ischemic attack (TIA), and cerebral infarction without residual deficits; Z88.8 Allergy status to other drugs, medicaments and biological substances
CPT/HCPCS: 0240U; 36415; 70450; 72100; 80053; 80305; 81003; 85025; 93005; 96365; 96375; 99284; A9270; J0780; J3475; J3490; J7030; 93010

== ENCOUNTER 2023-06-15 11:41 | Emergency (ER) | payer MEDICAID ==
[2023-06-15] MEDS ORDERED: Sodium Chloride 0.9% 2.5 ML Syringe FLUSH PRN (12:14)
[2023-06-15] MEDS ORDERED: Sodium Chloride 0.9% 10 ML Syringe FLUSH PRN (12:14)
[2023-06-15] MEDS ORDERED: Sodium Chloride 0.9% 1,000 ML IV STA ×2 (12:16→14:19)
[2023-06-15] MEDS ORDERED: Acetaminophen 500 MG Tab PO STA (12:17)
[2023-06-15 12:46] LABS: BASOPHILS PERCENT AUTO 0.2 % (0.0-1.5); EOSINOPHILS ABSOLUTE AUTO 0.2 K/uL (0.0-0.7); EOSINOPHILS PERCENT AUTO 2.5 % (0.0-7.0); HEMATOCRIT 41.2 % (38.0-50.0); HEMOGLOBIN 13.5 g/dL (13.0-17.0); LYMPHOCYTES ABSOLUTE AUTO 1.8 K/uL (0.6-2.4); MEAN CORPUSCULAR HEMOGLOBIN 30.4 pg (27.0-32.0); MEAN CORPUSCULAR HGB CONC 32.8 g/dL (31.0-37.0); MEAN CORPUSCULAR VOLUME 92.8 fL (80.0-98.0); MONOCYTES ABSOLUTE AUTO 0.4 K/uL (0.0-0.8); MONOCYTES PERCENT AUTO 6.2 % (0.0-15.0); NEUTROPHILS ABSOLUTE AUTO 4.1 K/uL (1.4-5.7); NEUTROPHILS PERCENT AUTO 63.1 % (48.0-80.0); NRBC ABSOLUTE 0 K/uL; PLATELET COUNT,PLT 251 K/uL (150-400); RED BLOOD CELL COUNT 4.44 M/uL (4.50-5.90); WHITE BLOOD CELL COUNT,WBC 6.42 K/uL (4.0-11.0)
[2023-06-15 12:46] LABS: APPEARANCE,URINE CLEAR; BILIRUBIN,URINE NEGATIVE (NEGATIVE); COLOR,URINE YELLOW; GLUCOSE,URINE NEGATIVE (NEGATIVE); KETONES,URINE NEGATIVE (NEGATIVE); LEUKOCYTE ESTERASE,URINE NEGATIVE (NEGATIVE); NITRITE,URINE NEGATIVE (NEGATIVE); OCCULT BLOOD,URINE NEGATIVE (NEGATIVE); PH,URINE 6.5 (5.0-8.0); PROTEIN,URINE NEGATIVE (NEGATIVE); UROBILINOGEN,URINE 0.2 EU/dL (<2.0)
[2023-06-15 13:01] LABS: AMPHETAMINES SCREEN, URINE NEGATIVE (CUTOFF=500); BARBITURATE SCREEN,URINE NEGATIVE (CUTOFF=200); BENZODIAZEPINES SCREEN,URINE NEGATIVE (CUTOFF=150); BUPRENORPHINE SCREEN,URINE NEGATIVE (CUTOFF=10); METHADONE SCREEN, URINE NEGATIVE (CUTOFF=200); METHAMPHETAMINES SCREEN, URINE NEGATIVE (CUTOFF=500); OXYCODONE SCREEN,URINE NEGATIVE (CUT0FF=100); PCP SCREEN,URINE NEGATIVE (CUTOFF=25); PROPOXYPHENE SCREEN,URINE NEGATIVE (CUTOFF=300); THC SCREEN,URINE 20 NG/ML PRESUMPTIVE POSITIVE (CUTOFF=50)
[2023-06-15 13:14] LABS: A/G RATIO 1.4 (0.9-1.6); ALBUMIN 4.2 g/dL (3.4-5.0); BILIRUBIN TOTAL 1.2 mg/dL (0.2-1.0); CALCIUM 8.9 mg/dL (8.5-10.1); CARBON DIOXIDE,CO2 31.4 mmol/L (21.0-32.0); CREATININE 0.9 mg/dL (0.8-1.3); EST CRCL DRUG DOSING (CG) 144.97 mL/min; POTASSIUM,K 4.5 mmol/L (3.5-5.1); PROTEIN TOTAL,TP 7.3 g/dL (6.4-8.2)
[2023-06-15] MEDS ORDERED: Iopamidol 755 Mg/ML 100 ML Bottle IVPUSH ONE ×2 (13:46→14:49)
[2023-06-15] MEDS ORDERED: fentaNYL 50 MCG/ML SDV IVPUSH STA ×2 (13:53→14:19)
== END 2023-06-15 16:33 | disposition home or self-care (01) ==
LOC: MW.ED 11:41
DX: Q89.09 Congenital malformations of spleen (principal); M54.6 Pain in thoracic spine; M54.50 Low back pain, unspecified; J98.4 Other disorders of lung; Q89.3 Situs inversus; F17.210 Nicotine dependence, cigarettes, uncomplicated; U07.0 Vaping-related disorder; Z86.16 Personal history of COVID-19; I50.9 Heart failure, unspecified; Z86.73 Personal history of transient ischemic attack (TIA), and cerebral infarction without residual deficits; Z79.899 Other long term (current) drug therapy; Z88.8 Allergy status to other drugs, medicaments and biological substances
CPT/HCPCS: 36415; 71045; 71260; 74177; 80053; 80305; 80307; 81003; 83690; 84484; 85025; 85652; 93005; 96361; 96374; 96376; 99284; A9270; J3010; J3490; J7030; Q9967; 93010